=== PATIENT | male | born 1940 | race Caucasian/White ===

== ENCOUNTER → 2023-11-04 08:14 | Outpatient (REF) | payer MEDICARE, BC, SELFPAY | LOC: DHCBS MAIN 08:14 | PROVIDERS: ATTENDING PHYSICIAN Internal Medicine Cardiovascular Disease; FAMILY PHYSICIAN Internal Medicine Geriatric Medicine | DX: I51.7 Cardiomegaly (principal); I35.8 Other nonrheumatic aortic valve disorders; I35.1 Nonrheumatic aortic (valve) insufficiency | CPT/HCPCS: 93306 ==

== ENCOUNTER → 2024-01-14 09:01 | Outpatient (REF) | payer MEDICARE, BC, SELFPAY ==
[2024-01-14 09:58] LABS: Osmolality Urine 437 mOsm/kg (300-900)
[2024-01-14 10:08] LABS: Urine Sodium 66 mmol/L (30-90)
[2024-01-14 10:15] LABS: Blood Urea Nitrogen 16 mg/dl (9-20); Calcium 8.8 mg/dl (8.4-10.2); Carbon Dioxide 26 mmol/L (22-30); Chloride 97 mmol/L (98-107); Glucose 76 mg/dl (70-99); Sodium 126 mmol/L (135-145); eGFR > 60.00
[2024-01-14 11:51] LABS: Osmolality Serum 272 mOsm/kg (275-300)
== END ==
LOC: REG 09:01
PROVIDERS: ATTENDING PHYSICIAN Internal Medicine Geriatric Medicine
DX: F33.40 Major depressive disorder, recurrent, in remission, unspecified (principal); I10 Essential (primary) hypertension; I51.7 Cardiomegaly; E78.2 Mixed hyperlipidemia; K52.832 Lymphocytic colitis; R42 Dizziness and giddiness; F32.9 Major depressive disorder, single episode, unspecified; M16.11 Unilateral primary osteoarthritis, right hip; N40.1 Benign prostatic hyperplasia with lower urinary tract symptoms; K22.710 Barrett's esophagus with low grade dysplasia; G45.9 Transient cerebral ischemic attack, unspecified; I63.9 Cerebral infarction, unspecified; M79.671 Pain in right foot; E87.1 Hypo-osmolality and hyponatremia; R97.20 Elevated prostate specific antigen [PSA]
CPT/HCPCS: 36415; 80048; 83930; 83935; 84300

== ENCOUNTER → 2024-01-16 08:03 | Outpatient (REF) | payer MEDICARE, BC, SELFPAY ==
[2024-01-16 09:29] LABS: ALT (SGPT) 24 U/L (0-50); AST (SGOT) 27 U/L (17-59); Alkaline Phosphatase 70 U/L (38-126); Blood Urea Nitrogen 20 mg/dl (9-20); Calcium 9.1 mg/dl (8.4-10.2); Carbon Dioxide 25 mmol/L (22-30); Chloride 96 mmol/L (98-107); Glucose 83 mg/dl (70-99); Potassium 4.5 mmol/L (3.5-5.1); Sodium 127 mmol/L (135-145); Total Bilirubin 0.9 mg/dl (0.2-1.3); Total Protein 6.3 g/dl (6.3-8.2); eGFR > 60.00
== END ==
LOC: REG 08:03
PROVIDERS: ATTENDING PHYSICIAN Internal Medicine Geriatric Medicine
DX: E87.1 Hypo-osmolality and hyponatremia (principal)
CPT/HCPCS: 36415; 80053

== ENCOUNTER → 2024-01-19 06:52 | Outpatient (REF) | payer MEDICARE, BC, SELFPAY ==
[2024-01-19 09:05] LABS: Blood Urea Nitrogen 23 mg/dl (9-20); Calcium 8.6 mg/dl (8.4-10.2); Carbon Dioxide 25 mmol/L (22-30); Chloride 99 mmol/L (98-107); Glucose 101 mg/dl (70-99); Potassium 4.6 mmol/L (3.5-5.1); Sodium 128 mmol/L (135-145); eGFR > 60.00
== END ==
LOC: REG 06:52
PROVIDERS: ATTENDING PHYSICIAN Internal Medicine Geriatric Medicine
DX: E87.1 Hypo-osmolality and hyponatremia (principal)
CPT/HCPCS: 36415; 80048

== ENCOUNTER → 2024-02-09 08:22 | Outpatient (REF) | payer MEDICARE, BC, SELFPAY | LOC: RAD 08:22 | PROVIDERS: ATTENDING PHYSICIAN Internal Medicine Geriatric Medicine | DX: I10 Essential (primary) hypertension (principal); F33.40 Major depressive disorder, recurrent, in remission, unspecified; I51.7 Cardiomegaly; E78.2 Mixed hyperlipidemia; K52.832 Lymphocytic colitis; R42 Dizziness and giddiness; F32.9 Major depressive disorder, single episode, unspecified; M16.11 Unilateral primary osteoarthritis, right hip; N40.1 Benign prostatic hyperplasia with lower urinary tract symptoms; K22.710 Barrett's esophagus with low grade dysplasia; G45.9 Transient cerebral ischemic attack, unspecified; I63.9 Cerebral infarction, unspecified; M79.671 Pain in right foot; E87.1 Hypo-osmolality and hyponatremia; R97.20 Elevated prostate specific antigen [PSA] | CPT/HCPCS: 76872 ==

== ENCOUNTER → 2024-02-17 15:13 | Outpatient (REF) | payer MEDICARE, BC, SELFPAY | LOC: CLAB 15:13 | PROVIDERS: ATTENDING PHYSICIAN Urology | DX: R97.20 Elevated prostate specific antigen [PSA] (principal) | CPT/HCPCS: 88305; 88342; 88344 ==

== ENCOUNTER 2024-04-23 08:17 | Outpatient (RCR) | payer MEDICARE, BC, SELFPAY ==
[2024-04-23] MEDS: CORTROSYN 1 MG IV (08:58)
[2024-04-23 09:59] LABS: ACTH Stim Cortisol 0 Min 9.3 ug/dl
[2024-04-23 11:18] LABS: ACTH Stim Cortisol 30 Min 18.1 ug/dl
[2024-04-23 11:19] LABS: ACTH Stim Cortisol 60 Min 22.5 ug/dl
== END 2024-04-26 08:38 | disposition home or self-care (01) ==
LOC: OID 08:17
PROVIDERS: ATTENDING PHYSICIAN Internal Medicine Geriatric Medicine
DX: E27.40 Unspecified adrenocortical insufficiency (principal)
CPT/HCPCS: 36415; 82533; 96374

== ENCOUNTER → 2024-07-21 08:06 | Outpatient (REF) | payer MEDICARE, BC, SELFPAY | LOC: MRI 3T 08:06 | PROVIDERS: ATTENDING PHYSICIAN Radiology Radiation Oncology; FAMILY PHYSICIAN Internal Medicine Geriatric Medicine | DX: C61 Malignant neoplasm of prostate (principal) | CPT/HCPCS: 72197; A9575 ==

== ENCOUNTER → 2024-07-23 06:24 | Day surgery (SDC) | payer MEDICARE, BC, SELFPAY | LOC: GI 06:24 | PROVIDERS: ATTENDING PHYSICIAN Specialist | DX: R19.4 Change in bowel habit (principal); D12.5 Benign neoplasm of sigmoid colon; K57.30 Diverticulosis of large intestine without perforation or abscess without bleeding; N40.0 Benign prostatic hyperplasia without lower urinary tract symptoms; K64.8 Other hemorrhoids | CPT/HCPCS: 45380; 88305 ==

== ENCOUNTER → 2024-10-21 09:26 | Outpatient (REF) | payer MEDICARE, BC, SELFPAY | LOC: RAD 09:26 | PROVIDERS: ATTENDING PHYSICIAN Specialist; FAMILY PHYSICIAN Internal Medicine Geriatric Medicine | DX: R15.9 Full incontinence of feces (principal) | CPT/HCPCS: 74270 ==

== ENCOUNTER → 2024-12-02 15:25 | Outpatient (REF) | payer MEDICARE, BC, SELFPAY | LOC: RAD 15:25 | PROVIDERS: ATTENDING PHYSICIAN Family Medicine Geriatric Medicine; FAMILY PHYSICIAN Internal Medicine Geriatric Medicine | DX: M79.605 Pain in left leg (principal); M79.604 Pain in right leg | CPT/HCPCS: 93970 ==

== ENCOUNTER 2024-12-13 07:08 | Outpatient (RCR) | payer MEDICARE, BC, SELFPAY | END 2024-12-13 23:59 | disposition home or self-care (01) | LOC: RPT 07:08 | PROVIDERS: ATTENDING PHYSICIAN Family Medicine Geriatric Medicine; FAMILY PHYSICIAN Internal Medicine Geriatric Medicine | DX: R53.0 Neoplastic (malignant) related fatigue (principal); R26.2 Difficulty in walking, not elsewhere classified; M62.81 Muscle weakness (generalized); M72.2 Plantar fascial fibromatosis; C61 Malignant neoplasm of prostate; Z79.818 Long term (current) use of other agents affecting estrogen receptors and estrogen levels; Z92.3 Personal history of irradiation; Z85.46 Personal history of malignant neoplasm of prostate | CPT/HCPCS: 97110; 97163; 97164; 97530 ==

== ENCOUNTER → 2024-12-13 10:50 | Outpatient (REF) | payer MEDICARE, BC, SELFPAY | LOC: EMG 10:50 | PROVIDERS: ATTENDING PHYSICIAN Internal Medicine Geriatric Medicine | DX: R20.0 Anesthesia of skin (principal) | CPT/HCPCS: 95886; 95911 ==

== ENCOUNTER 2024-12-21 14:52 | Outpatient (RCR) | payer MEDICARE, BC, SELFPAY | END 2024-12-27 08:29 | disposition home or self-care (01) | LOC: RPT 14:52 | PROVIDERS: ATTENDING PHYSICIAN Family Medicine Geriatric Medicine; FAMILY PHYSICIAN Internal Medicine Geriatric Medicine | DX: R53.0 Neoplastic (malignant) related fatigue (principal); R26.2 Difficulty in walking, not elsewhere classified; M62.81 Muscle weakness (generalized); M72.2 Plantar fascial fibromatosis; Z73.6 Limitation of activities due to disability; Z79.818 Long term (current) use of other agents affecting estrogen receptors and estrogen levels; Z85.46 Personal history of malignant neoplasm of prostate; Z92.3 Personal history of irradiation | CPT/HCPCS: 97110 ==

== ENCOUNTER 2024-12-29 07:00 | Day surgery (SDC) | payer MEDICARE, BC, SELFPAY ==
[2024-12-27 11:58] LABS: ALT (SGPT) 25 U/L (0-50); AST (SGOT) 24 U/L (17-59); Alkaline Phosphatase 110 U/L (38-126); Blood Urea Nitrogen 39 mg/dl (9-20); Calcium 9.2 mg/dl (8.4-10.2); Carbon Dioxide 24 mmol/L (22-30); Chloride 95 mmol/L (98-107); Glucose 90 mg/dl (70-99); Potassium 4.6 mmol/L (3.5-5.1); Sodium 127 mmol/L (135-145); Total Bilirubin 0.9 mg/dl (0.2-1.3); Total Protein 6.2 g/dl (6.3-8.2); eGFR > 60.00
[2024-12-27 12:23] LABS: Hematocrit 35.5 % (39.0-52.0); Hemoglobin 12.7 g/dL (13.0-18.0); Mean Corp Hgb Conc. 35.8 g/dL (33.0-37.0); Mean Corpuscular Hgb 31.4 pg (27.0-31.0); Mean Corpuscular Volume 87.9 fL (80.0-94.0); Mean Platelet Volume 10.6 fL (7.4-10.4); Platelet Count 197 10^3/uL (130-400); Red Blood Cell Count 4.04 10^6/uL (4.70-6.10); Red Cell Dist. Width 12.2 % (11.5-14.5); White Blood Cell Count 4.4 10^3/uL (4.8-10.8)
[2024-12-27 12:54] LABS: Glycohemoglobin (HgbA1c) 5.8 % (4.0-5.6)
[2024-12-27 13:49] VITALS: BMI 27.3
--- NOTE | 2024-12-27 13:50 | CM ---
CM reviewed medical records. CM spoke with patient via phone. CM confirmed demographics. Patient lives in a two story home with a first floor set up. Patient lives independently. Patient denies a history of VN or SNF. Patient is active with his PCP.
Patient uses [facility] for medication services.
Patient does lives alone. Patient stated that he will not have anyone to stay with him post -operatively. Patient stated that his son would be available to provide transportation home, but would not be available to stay with him. CM advised patient
to discuss post operative plans with son. CM further explained that PT will work with patient to make further recommendations.
CM will remain available as needed.
[2024-12-27 14:48] VITALS: BMI 27.3
[2024-12-29 07:10] VITALS: BMI 27.3
[2024-12-29 07:11] VITALS: BP 127/63
[2024-12-29] MEDS: TYLENOL 650 MG PO (07:32)
[2024-12-29] MEDS: NORMOSOL-R/PLASMALYTE-A 1000 IV (07:32)
[2024-12-29] MEDS: CELEBREX 200 MG PO (07:32)
[2024-12-29 07:39] LABS: Blood Urea Nitrogen 19 mg/dl (9-20); Calcium 9.1 mg/dl (8.4-10.2); Carbon Dioxide 22 mmol/L (22-30); Chloride 98 mmol/L (98-107); Estimated Creatinine Clearance 87 ml/min; Glucose 98 mg/dl (70-99); Potassium 4.3 mmol/L (3.5-5.1); Sodium 126 mmol/L (135-145); eGFR > 60.00
--- NOTE | 2024-12-29 08:18 | W.PN.UPDATE ---
Update Note
Progress Note Update
R HANNA 12/29/24
DVT ppx Eliquis 2.5mg bid
Pain control-Ultram
PAF
NSVT
-tele+BB+ Eliquis
Chronic hyponatremia-fluid restrict,Na+ Cl-tabs, NSS IVF-CMP in am
--- NOTE | 2024-12-29 08:27 | W.DS.TRANS ---
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
-
Discharge Instructions:
Discharge Diagnosis/Procedures R HANNA 12/29/24
Diet Restrict fluids to 48 oz
Activity With Walker
Driving Restrictions No driving
Bathing Restrictions OK to Shower
Other Services PT
Instructions:
Stand-Alone Forms: Total Hip/Knee Replacement D/C
Changes to Home Medications: Yes
Discharge Medications:
DC Medications w/original date entered in [employer]
atorvastatin 20 mg tablet 20 mg PO DAILY 10/07/22
famotidine 40 mg tablet 40 mg PO PRN PRN sour stomach 10/07/22
pantoprazole 40 mg tablet,delayed release 40 mg PO BID 10/07/22
silodosin 8 mg capsule 8 mg PO DAILY 10/07/22
tranylcypromine 10 mg tablet (Parnate) 50 mg PO DAILY anxiety 10/07/22
calcium carbonate 200 mg PO PRN PRN Indigestion 08/13/23
carvedilol 3.125 mg tablet 3.125 mg PO BID 08/13/23
lisinopril 20 mg tablet 20 mg PO BID 08/13/23
metoclopramide HCl 5 mg tablet (Reglan) 5 mg PO TIDPRN PRN Indigestion 04/23/24
Lupron Depot (3 month) 1 dose Q3M 12/24/24
calcium carbonate (Calcium 600) 600 mg PO DAILY 12/24/24
cholecalciferol (vitamin D3) 125 mcg (5,000 unit) tablet (Vitamin D3) 125 mcg PO DAILY 12/24/24
cyanocobalamin (vitamin B-12) 1,000 mcg tablet (Vitamin B-12) 1,000 mcg PO DAILY 12/24/24
furosemide 20 mg tablet (Lasix) 20 mg PO DAILY 12/24/24
lycopene 10 mg capsule 20 mg PO DAILY 12/24/24
mupirocin 2 % topical ointment 1 applic topical BID infection prevention #1 tube 12/24/24
prednisolone acetate (PF) 1 % eye drops,suspension 1 drp BOTH EYES PRN PRN Mucous Buildup 12/24/24
vitamin K2 100 mcg capsule 100 mcg PO DAILY 12/24/24
zolpidem 12.5 mg tablet,extended release,multiphase (Ambien CR) 12.5 mg PO HSPRN PRN Insomnia 12/24/24
dexamethasone 4 mg tablet 4 mg PO BID inflammation #6 tabs 12/27/24
gabapentin 300 mg capsule 300 mg PO HS sleep/pain #10 caps 12/27/24
ondansetron 4 mg disintegrating tablet 4 mg PO Q6H PRN n/v #20 tabs 12/27/24
sodium chloride 0.2 % 500 mg PO BID 12/27/24
tramadol 50 mg tablet 50 mg PO Q6H PRN 1 tab moderate pain, 2 if severe #30 tabs 12/27/24
apixaban 5 mg tablet (Eliquis) 2.5 mg (1/2 x 5 mg) PO BID Blood clot prevention/tx/afib #0 tabs 12/29/24
Home Medication Changes
mupirocin 2 % topical ointment 1 applic topical BID infection prevention #1 tube 12/24/24
prednisolone acetate (PF) 1 % eye drops,suspension 1 drp BOTH EYES PRN PRN Mucous Buildup 12/24/24
vitamin K2 100 mcg capsule 100 mcg PO DAILY 12/24/24
zolpidem 12.5 mg tablet,extended release,multiphase (Ambien CR) 12.5 mg PO HSPRN PRN Insomnia 12/24/24
dexamethasone 4 mg tablet 4 mg PO BID inflammation #6 tabs 12/27/24
gabapentin 300 mg capsule 300 mg PO HS sleep/pain #10 caps 12/27/24
ondansetron 4 mg disintegrating tablet 4 mg PO Q6H PRN n/v #20 tabs 12/27/24
sodium chloride 0.2 % 500 mg PO BID 12/27/24
tramadol 50 mg tablet 50 mg PO Q6H PRN 1 tab moderate pain, 2 if severe #30 tabs 12/27/24
apixaban 5 mg tablet (Eliquis) 2.5 mg (1/2 x 5 mg) PO BID Blood clot prevention/tx/afib #0 tabs 12/29/24
Pending Results: No
== END 2024-12-29 08:35 | disposition home or self-care (01) ==
LOC: SDS 07:00
PROVIDERS: Anesthesiology; ATTENDING PHYSICIAN Orthopaedic Surgery; FAMILY PHYSICIAN Internal Medicine Geriatric Medicine; REFERRING PHYSICIAN Internal Medicine Cardiovascular Disease
DX: M16.11 Unilateral primary osteoarthritis, right hip (principal); Z53.9 Procedure and treatment not carried out, unspecified reason
CPT/HCPCS: 27130; C1713; 36415; 80048; 80053; 83036; 85027; 87070

== ENCOUNTER 2025-01-19 07:44 | Inpatient (IN) | payer MEDICARE, BC, SELFPAY ==
--- NOTE | 2025-01-11 14:20 | CM ---
Addendum entered by Haleigh Owens RN 01/13/25 11:03:
CM spoke with patient via phone and discuss discharge planning options. CM reinforced that patient is expected to be discharged home after surgery, and PT will assess for needs. Patient understood. CM further provided the phone numbers for [facility]
PT in [place] and also [facility].
CM offered to call patient's on to confirm that son would be available for support post operatively. Patient declined. Patient stated that his son will pick him up from surgery and provide supervision.
CM will remain available as needed.
Original Note:
CM spoke with patient as his surgery was rescheduled for 01/19. Patient stated that he would not have anyone to stay with him post -operatively. CM advised that PT will work with him to establish safe discharge plan. CM will remain available as
needed.
PLAN: Pending PT/OT evaluations.
[2025-01-13 12:54] LABS: Blood Urea Nitrogen 35 mg/dl (9-20); Calcium 8.9 mg/dl (8.4-10.2); Carbon Dioxide 26 mmol/L (22-30); Chloride 100 mmol/L (98-107); Glucose 94 mg/dl (70-99); Potassium 4.8 mmol/L (3.5-5.1); Sodium 134 mmol/L (135-145); eGFR > 60.00
[2025-01-13 14:03] VITALS: BMI 28.0
[2025-01-13 14:54] VITALS: BMI 28.0
--- NOTE | 2025-01-17 09:07 | CM ---
CM received call from patient stating that he is having a difficult time making an outpatient PT appointment. CM referred to Mona Felder for assistance.
[2025-01-19] VITALS (19 sets, daily range): BP systolic 106–136; BP diastolic 65–90; PULSE 101; O2SAT 96–97; BMI 28.0
[2025-01-19] MEDS: TYLENOL 650 MG PO ×4 (08:36→20:10)
[2025-01-19] MEDS: CELEBREX 200 MG PO (08:36)
[2025-01-19] MEDS: BACTROBAN NASAL 1 GRAM NASAL (08:37)
[2025-01-19] MEDS: NORMOSOL-R/PLASMALYTE-A 1000 IV (09:18)
--- NOTE | 2025-01-19 11:17 | W.PN.UPDATE ---
Update Note
Progress Note Update
R HANNA Dr. Walker 01/19/25
DVT ppx-Eliquis 2.5mg bid
-OP PT
Paroxysmal atrial fibrillation
Nonsustained ventricular tachycardia.
-tele-continue BB uninterrupted-resume Eliquis 5mgbid POD#3 provided hemodynamically stable
Hyponatremia. Patient is currently on fluid restriction with
sodium chloride tablets added to home medications per Dr. Kim,
and we will include normal saline in lieu of Normosol
postoperatively. Continue fluid restriction. Check CMP
postoperative day one and resume home sodium tablets.
Hauser's esophagus/GERD-PPI
Vertigo-fall precautions
--- NOTE | 2025-01-19 11:58 | W.DS.TRANS ---
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
-
Discharge Instructions:
Discharge Diagnosis/Procedures R HANNA 01/19/25
Diet As tolerated
Additional Activity minimize Tramadol and wear TEDs stockings to
prevent low blood pressure/dizziness
Driving Restrictions No driving
Bathing Restrictions OK to Shower
Other Services PT
Instructions:
Stand-Alone Forms: Total Hip/Knee Replacement D/C
Changes to Home Medications: Yes
Discharge Medications:
DC Medications w/original date entered in [employer]
atorvastatin 20 mg tablet 20 mg PO DAILY 10/07/22
famotidine 40 mg tablet 40 mg PO PRN PRN sour stomach 10/07/22
pantoprazole 40 mg tablet,delayed release 40 mg PO BID 10/07/22
silodosin 8 mg capsule 8 mg PO DAILY 10/07/22
tranylcypromine 10 mg tablet (Parnate) 50 mg PO DAILY anxiety 10/07/22
calcium carbonate 200 mg PO PRN PRN Indigestion 08/13/23
carvedilol 3.125 mg tablet 3.125 mg PO BID 08/13/23
metoclopramide HCl 5 mg tablet (Reglan) 5 mg PO TIDPRN PRN Indigestion 04/23/24
Lupron Depot (3 month) 1 dose Q3M 12/24/24
calcium carbonate (Calcium 600) 600 mg PO DAILY 12/24/24
cholecalciferol (vitamin D3) 125 mcg (5,000 unit) tablet (Vitamin D3) 125 mcg PO DAILY 12/24/24
cyanocobalamin (vitamin B-12) 1,000 mcg tablet (Vitamin B-12) 1,000 mcg PO DAILY 12/24/24
furosemide 20 mg tablet (Lasix) 20 mg PO DAILY 12/24/24
lycopene 10 mg capsule 20 mg PO DAILY 12/24/24
mupirocin 2 % topical ointment 1 applic topical BID infection prevention #1 tube 12/24/24
prednisolone acetate (PF) 1 % eye drops,suspension 1 drp BOTH EYES PRN PRN Mucous Buildup 12/24/24
zolpidem 12.5 mg tablet,extended release,multiphase (Ambien CR) 12.5 mg PO HSPRN PRN Insomnia 12/24/24
dexamethasone 4 mg tablet 4 mg PO BID inflammation #6 tabs 12/27/24
gabapentin 300 mg capsule 300 mg PO HS sleep/pain #10 caps 12/27/24
ondansetron 4 mg disintegrating tablet 4 mg PO Q6H PRN n/v #20 tabs 12/27/24
tramadol 50 mg tablet 50 mg PO Q6H PRN 1 tab moderate pain, 2 if severe #30 tabs 12/27/24
polyethylene glycol 3350 17 gram oral powder packet (Miralax) 17 g PO DAILY 01/12/25
simethicone 80 mg chewable tablet 80 mg PO PRN PRN gas 01/12/25
simethicone 80 mg chewable tablet 80 mg PO QPM 01/12/25
sodium chloride 1,000 mg soluble tablet 500 mg PO BID 01/12/25
acetaminophen 325 mg tablet (Tylenol) 650 mg (2 x 325 mg) PO QID #1 tab 01/19/25
apixaban 5 mg tablet (Eliquis) 2.5 mg (1/2 x 5 mg) PO BID Blood clot prevention/tx/afib #0 tabs 01/19/25
docusate sodium 100 mg capsule (Colace) 100 mg PO BID stool softner #1 cap 01/19/25
lisinopril 20 mg tablet 20 mg PO BID #0 tabs 01/19/25
magnesium hydroxide 400 mg/5 mL oral suspension (Milk of Magnesia) 30 ml PO HS PRN constipation #1 mL 01/19/25
sennosides 8.6 mg tablet (Senokot) 17.2 mg (2 x 8.6 mg) PO BID laxative #2 tabs 01/19/25
Home Medication Changes
dexamethasone 4 mg tablet 4 mg PO BID inflammation #6 tabs 12/27/24
gabapentin 300 mg capsule 300 mg PO HS sleep/pain #10 caps 12/27/24
ondansetron 4 mg disintegrating tablet 4 mg PO Q6H PRN n/v #20 tabs 12/27/24
tramadol 50 mg tablet 50 mg PO Q6H PRN 1 tab moderate pain, 2 if severe #30 tabs 12/27/24
polyethylene glycol 3350 17 gram oral powder packet (Miralax) 17 g PO DAILY 01/12/25
acetaminophen 325 mg tablet (Tylenol) 650 mg (2 x 325 mg) PO QID #1 tab 01/19/25
apixaban 5 mg tablet (Eliquis) 2.5 mg (1/2 x 5 mg) PO BID Blood clot prevention/tx/afib #0 tabs 01/19/25
docusate sodium 100 mg capsule (Colace) 100 mg PO BID stool softner #1 cap 01/19/25
magnesium hydroxide 400 mg/5 mL oral suspension (Milk of Magnesia) 30 ml PO HS PRN constipation #1 mL 01/19/25
sennosides 8.6 mg tablet (Senokot) 17.2 mg (2 x 8.6 mg) PO BID laxative #2 tabs 01/19/25
Pending Results: No
[2025-01-19] MEDS: ULTRAM 50 MG PO ×2 (13:07→20:11)
[2025-01-19] MEDS: FLOMAX 0.4 MG PO (13:07)
[2025-01-19] MEDS: DILAUDID 0.25 MG IV ×2 (13:38→15:17)
[2025-01-19] MEDS: NSS 1000 IV (13:42)
--- NOTE | 2025-01-19 16:15 | PTCARENOTE ---
Telephone report received from PHOTOLITHOGRAPHIC STRIPPER Marianne; patient arrived in bed with IVF infusing, primaseal on (R) hip with minimal old drainage; VSS.
[2025-01-19] MEDS: ANCEF 5 IV (16:44)
[2025-01-19] MEDS: COLACE 100 MG PO (20:10)
[2025-01-19] MEDS: SODIUM CHLORIDE 1 GRAM PO (20:10)
[2025-01-19] MEDS: SENOKOT 17.2 MG PO (20:10)
[2025-01-19] MEDS: ELIQUIS 2.5 MG PO (20:10)
[2025-01-19] MEDS: PROTONIX 40 MG PO (20:10)
[2025-01-19] MEDS: DECADRON 4 MG IV (20:11)
[2025-01-19] MEDS: COREG 3.125 MG PO (20:11)
[2025-01-19] MEDS: PEPCID PO (21:53)
[2025-01-19] MEDS: AMBIEN 10 MG PO (21:57)
[2025-01-19] MEDS: NEURONTIN 300 MG PO (21:57)
[2025-01-19] MEDS: BACTROBAN 2% OINTMENT 1 APPLIC NASAL (21:57)
[2025-01-19] MEDS: ZOFRAN 4 MG IV (22:10)
[2025-01-19] MEDS: DILAUDID 0.5 MG IV (22:16)
[2025-01-20] VITALS (7 sets, daily range): BP systolic 91–137; BP diastolic 50–75; PULSE 87–100; O2SAT 97
[2025-01-20] MEDS: ANCEF 5 IV (00:09)
[2025-01-20] MEDS: TYLENOL 650 MG PO ×6 (00:09→19:49)
[2025-01-20] MEDS: TORADOL 15 MG IV (00:09)
[2025-01-20] MEDS: ATIVAN 0.5 MG IV (01:21)
[2025-01-20] MEDS: NSS (PRESERVATIVE FREE) 0.25 ML IV (01:22)
[2025-01-20] MEDS: ULTRAM 50 MG PO ×3 (02:08→22:02)
--- NOTE | 2025-01-20 03:37 | PTCARENOTE ---
Pt. having significant R hip surgical site pain throughout shift. Prescribed Tramadol 50mg PO and Dilaudid 0.5mg IV given - see MAR for admin times - without success and pt. c/o progressively worsening pain. Pt. described pain as a constant
throbbing/aching in his R hip and into R knee area ranging from 7 to 8/10. Decent ROM in RLE, pedal pulses +2, strong dorsiflexion and plantar flexion, small drainage on primaseal unchanged from initial assessment, +1 swelling to R hip without
hematoma, elevation utilized, and ice applied intermittently. Left TT message for ortho on-call doctor. House DIRECTOR DATA suggested Toradol IV, but medication did not provide pt. with adequate pain relief. IV Ativan tried with successful results. Pt. had
significant relief in pain down to 5/10 and able to get in a comfortable position. As of 0300 vital signs, pt. reports 3/10 R hip pain and able to get a bit of sleep.
[2025-01-20] MEDS: LASIX 20 MG PO (08:11)
[2025-01-20] MEDS: ELIQUIS 2.5 MG PO ×2 (08:12→19:46)
[2025-01-20] MEDS: COREG 3.125 MG PO ×2 (08:12→19:47)
[2025-01-20] MEDS: ProAmatine 5 MG PO (08:12)
[2025-01-20] MEDS: PROTONIX 40 MG PO ×2 (08:12→19:46)
[2025-01-20] MEDS: SODIUM CHLORIDE 1 GRAM PO ×2 (08:13→19:47)
[2025-01-20] MEDS: DECADRON 4 MG IV (08:13)
[2025-01-20] MEDS: SENOKOT 17.2 MG PO ×2 (08:13→19:46)
[2025-01-20] MEDS: COLACE 100 MG PO ×2 (08:13→19:45)
[2025-01-20] MEDS: LIPITOR 20 MG PO (08:13)
[2025-01-20] MEDS: BACTROBAN 2% OINTMENT 1 APPLIC NASAL ×2 (08:14→19:50)
[2025-01-20] MEDS: FLUSH (NSS) 2 FLUSH IV (08:22)
--- NOTE | 2025-01-20 08:48 | CM ---
Addendum entered by Haleigh Owens RN 01/20/25 13:19:
Cm attempted to call patient's son. Voicemail was full.
Addendum entered by Haleigh Owens RN 01/20/25 11:03:
CM was updated by PA. Plan to keep patient for further medical observation.
CM left message for patient's son to confirm that he is unable to stay with patient on discharge.
Addendum entered by Haleigh Owens RN 01/20/25 10:48:
CM confirmed that patient is not eligible for waiver program via [facility].
Addendum entered by Haleigh Owens RN 01/20/25 09:29:
CM has been accepted to [facility].
Original Note:
CM reviewed PT notes and SNF was recommended. CM spoke with patient and he was surprised that SNF was recommended. He would be agree to SNF if PT continued to recommend it. Chaz sent preliminary referrals to [facility] and
[facility].
PLAN: SNF if patient is agreeable.
[2025-01-20 09:32] LABS: Blood Urea Nitrogen 23 mg/dl (9-20); Calcium 8.8 mg/dl (8.4-10.2); Carbon Dioxide 23 mmol/L (22-30); Chloride 101 mmol/L (98-107); Estimated Creatinine Clearance 77 ml/min; Glucose 129 mg/dl (70-99); Potassium 4.3 mmol/L (3.5-5.1); Sodium 131 mmol/L (135-145); eGFR > 60.00
--- NOTE | 2025-01-20 12:31 | W.PN.ORTHO ---
Today's Communication / Plan
-
d/c when stable
Assessment
.
Distal Motor Intact: Yes
Dressing:
Clean, dry and intact.
Assessment:
Paroxysmal atrial fibrillation
Nonsustained ventricular tachycardia.
-tele-continue BB uninterrupted-resume Eliquis 5mgbid POD#3 provided hemodynamically stable
Hyponatremia. Patient is currently on fluid restriction with
sodium chloride tablets added to home medications per Dr. Kim,
and we will include normal saline in lieu of Normosol
postoperatively. Continue fluid restriction.
BMP stable--IVF NSS @80ml/hr to address sodium and hypotension
Dizzy-IVF + Midodrine-check Orthostatics
Hauser's esophagus/GERD-PPI
Vertigo-fall precautions
Plan
.
Surgery / Date: R HANNA Dr. Walker 01/19/25
DVT Prophylaxis: Other (Eliquis)
Activity:
Out of bed.
PT/OT
Discharge Plan: Other (home 14/04 assist vs SNF-vocational case manager to speak with son)
Subjective
.
.:
Patient resting comfortably.
Vital Signs and Labs
.
Vital Signs and Labs:
Lab Results
01/20/25 07:48
Temp Pulse Resp BP Pulse Ox
98.1 F 93 17 111/62 97
01/20/25 11:04 01/20/25 11:04 01/20/25 11:04 01/20/25 11:04 01/20/25 11:04
Non-invasive Hgb result: 11.4
Physical Exam
-
HEENT: No pallor, cyanosis, or jaundice. Throat clear.
NECK: Supple. No JVD.
RESPIRATORY: Lungs clear to auscultation.
CVS: S1, S2 normal. RRR.� No murmur, rub or gallop.
ABDOMEN: Soft, non-tender. No distension. BS+/normal.
EXTREMITIES: strength equal, no calf pain with palpation
LEVERS LACE MACHINE OPERATOR: AOx3. No focal deficits. transmission calibration engineer grossly intact
[2025-01-20] MEDS: NSS 500 IV (16:01)
[2025-01-20] MEDS: ZOFRAN 4 MG IV (19:50)
[2025-01-20] MEDS: NEURONTIN 300 MG PO (21:49)
[2025-01-20] MEDS: AMBIEN 10 MG PO (21:49)
[2025-01-20] MEDS: PEPCID 40 MG PO (21:49)
[2025-01-21] MEDS: TYLENOL PO (00:28)
[2025-01-21 03:00] VITALS: BP 131/76
[2025-01-21] MEDS: TYLENOL 650 MG PO ×3 (03:58→13:43)
[2025-01-21] MEDS: ULTRAM 50 MG PO ×2 (06:56→15:43)
[2025-01-21 07:03] VITALS: BP 136/90
--- NOTE | 2025-01-21 09:54 | CM ---
Addendum entered by Haleigh Owens RN 01/21/25 12:27:
CM confirmed that patient's son will be with him 24 hours/day over the weekend and is agreeable to [facility]. CM updated [facility] clinical rn liaison with new referral.
PLAN: Home with son and [facility].
Addendum entered by Haleigh Owens RN 01/21/25 10:19:
Cm spoke with patient's son Kenton who stated that he would be available for supervision, but not 24 hours. Patient's son stated that he has additional support with neighbors and friends. CM will pending further discharge planning based on PT
evaluation.
Original Note:
Cm spoke with patient. Patient stated that he would prefer home discharge. Patient stated that his son and neighbors would be available for assistance. CM will await PT evaluation for further planning.
[2025-01-21] MEDS: COLACE 100 MG PO (10:18)
[2025-01-21] MEDS: LASIX 20 MG PO (10:19)
[2025-01-21] MEDS: ProAmatine PO (10:19)
[2025-01-21] MEDS: SENOKOT 17.2 MG PO (10:20)
[2025-01-21] MEDS: LIPITOR 20 MG PO (10:20)
[2025-01-21] MEDS: COREG 3.125 MG PO (10:20)
[2025-01-21] MEDS: SODIUM CHLORIDE 1 GRAM PO (10:20)
[2025-01-21] MEDS: ELIQUIS 2.5 MG PO (10:20)
[2025-01-21] MEDS: PROTONIX 40 MG PO (10:21)
[2025-01-21 10:46] LABS: Sodium 135 mmol/L (135-145)
[2025-01-21 11:02] VITALS: BP 139/78
[2025-01-21 11:29] VITALS: BP 143/80; PULSE 80; O2SAT 97
[2025-01-21 11:57] VITALS: BP 128/78
--- NOTE | 2025-01-21 12:34 | W.PN.ORTHO ---
Today's Communication / Plan
-
-discussion occurred with son and navigator re patient safety at home--son agrees to stay with him and provided supervision/assist -home care will be arranged-patient refuses SNF but is functionally much improved from POD#1
Assessment
.
Distal Motor Intact: Yes
Dressing:
Clean, dry and intact.
Assessment:
Paroxysmal atrial fibrillation
Nonsustained ventricular tachycardia.
-stable on tele-continue BB uninterrupted-resume Eliquis 5mgbid POD#3 provided hemodynamically stable
Hyponatremia. Patient is currently on fluid restriction with
sodium chloride tablets added to home medications per Dr. Kim,
and we have utilized normal saline in lieu of Normosol postoperatively.
Continue fluid restriction.
BMP stable--IVF NSS @80ml/hr to address sodium and hypotension on POD #1--Na+ improved POD#2 135
Dizzy POD#1--IVF + Midodrine-Orthostatics now stable
Hauser's esophagus/GERD-PPI
Vertigo-fall precautions
Plan
.
Surgery / Date: R HANNA Walker 01/19/25
DVT Prophylaxis: Other (Eliquis)
Activity:
Out of bed.
PT/OT
Discharge Plan: Home w/ VN
Subjective
.
.:
Patient resting comfortably.
Vital Signs and Labs
.
Vital Signs and Labs:
Lab Results
01/21/25 08:14
Temp Pulse Resp BP Pulse Ox
97.7 F 91 16 139/78 96
01/21/25 11:02 01/21/25 11:02 01/21/25 11:02 01/21/25 11:02 01/21/25 11:02
Non-invasive Hgb result: 15.4
Physical Exam
-
HEENT: No pallor, cyanosis, or jaundice. Throat clear.
NECK: Supple. No JVD.
RESPIRATORY: Lungs clear to auscultation.
CVS: S1, S2 normal. RRR.� No murmur, rub or gallop.
ABDOMEN: Soft, non-tender. No distension. BS+/normal.
EXTREMITIES: strength equal, no calf pain with palpation
CEMENT SIDE LASTER: AOx3. No focal deficits. printer floor covering assistant grossly intact
--- NOTE | 2025-01-21 13:17 | VNURNOTE ---
Home Health Liaison met with patient at bedside to discuss [facility] nurse/therapy, visits, schedule and homebound status. Patient is agreeable and understands that visits at home will be 2-3 x per week to assess and teach medical management. This
author reinforced to patient importance of having someone to assist him at home upon DC. Confirmed that his son Kenton will help him. Called son Kenton to explain [facility] services, no answer, left message. Patient is aware that [facility] will contact
them for start of care in 1-2 days after discharge from .
[facility] referral completed in [facility].
[2025-01-21] MEDS: DULCOLAX 10 MG RECTAL (13:43)
[2025-01-21] MEDS: MILK OF MAGNESIA 30 ML PO (13:53)
[2025-01-21 15:05] VITALS: BP 128/72; BP 136/79; BP 139/74; PULSE 101; PULSE 91; PULSE 94
== END 2025-01-21 16:47 | disposition home health service (06) | DRG 470 ==
LOC: 2 SOUTH 07:44
PROVIDERS: Physician Assistant Medical; ADMITTING PHYSICIAN Orthopaedic Surgery; FAMILY PHYSICIAN Internal Medicine Geriatric Medicine
PROC: 0SR90JA Replacement of Right Hip Joint with Synthetic Substitute, Uncemented, Open Approach (ICD-10-PCS; 2025-01-19)
DX: M16.11 Unilateral primary osteoarthritis, right hip (principal); I47.20 Ventricular tachycardia, unspecified; E87.1 Hypo-osmolality and hyponatremia; I48.0 Paroxysmal atrial fibrillation; I10 Essential (primary) hypertension; E78.5 Hyperlipidemia, unspecified; K21.9 Gastro-esophageal reflux disease without esophagitis; K22.70 Barrett's esophagus without dysplasia; Z86.73 Personal history of transient ischemic attack (TIA), and cerebral infarction without residual deficits; G47.00 Insomnia, unspecified; Z79.01 Long term (current) use of anticoagulants; Z88.5 Allergy status to narcotic agent; Z92.3 Personal history of irradiation; Z85.46 Personal history of malignant neoplasm of prostate
CPT/HCPCS: 36415; 73502; 80048; 84295; 97110; 97116; 97163; 97167; 97530; 97535; C1776

== ENCOUNTER 2025-01-30 00:39 | Inpatient (IN) | payer MEDICARE, BC, SELFPAY ==
[2025-01-29 21:44] LABS: % Basophils 0.3 % (0-2); % Eosinophils 1.4 % (0-6); % Immature Granulocytes 4.2 % (0-0.5); % Lymphocytes 8.9 % (20.5-51.1); % Monocytes 12.2 % (1.7-9.3); Absolute Eosinophils 0.1 10^3/uL (0-0.7); Absolute Immature Granulocytes 0.3 10^3/uL (0-0.05); Absolute Lymphocytes 0.6 10^3/uL (1.2-3.4); Absolute Monocytes 0.9 10^3/uL (0.1-0.6); Absolute Neutrophils 5.3 10^3/uL (1.4-6.5); Hematocrit 35.3 % (39.0-52.0); Hemoglobin 12.6 g/dL (13.0-18.0); Mean Corp Hgb Conc. 35.7 g/dL (33.0-37.0); Mean Corpuscular Hgb 30.4 pg (27.0-31.0); Mean Corpuscular Volume 85.1 fL (80.0-94.0); Mean Platelet Volume 10.1 fL (7.4-10.4); Nucleated Red Blood Cells % 0 % (-); Platelet Count 188 10^3/uL (130-400); Red Blood Cell Count 4.15 10^6/uL (4.70-6.10); Red Cell Dist. Width 13.4 % (11.5-14.5); White Blood Cell Count 7.2 10^3/uL (4.8-10.8)
[2025-01-29 21:52] VITALS: BMI 26.9
[2025-01-29 21:57] LABS: Glucose - Point of Care 133 mg/dl (70-99)
[2025-01-29] MEDS: ZOFRAN 4 MG IV (21:59)
[2025-01-29 22:00] VITALS: BP 128/74
[2025-01-29 22:00] LABS: APTT 32.6 Sec (23.4-35.0); INR 1.24; PT 15.9 Sec (11.4-14.6)
[2025-01-29 22:05] LABS: ALT (SGPT) 16 U/L (0-50); AST (SGOT) 17 U/L (17-59); Albumin 3.3 g/dl (3.5-5.0); Alkaline Phosphatase 114 U/L (38-126); Blood Urea Nitrogen 31 mg/dl (9-20); Calcium 8.4 mg/dl (8.4-10.2); Carbon Dioxide 19 mmol/L (22-30); Chloride 97 mmol/L (98-107); Estimated Creatinine Clearance 85 ml/min; Glucose 114 mg/dl (70-99); Sodium 125 mmol/L (135-145); Total Protein 5.6 g/dl (6.3-8.2); eGFR > 60.00
[2025-01-29 22:07] LABS: Troponin I < 0.012 ng/ml
--- NOTE | 2025-01-29 22:24 | ED.CVA ---
History of Present Illness
General
Chief Complaint: CVA/TIA Symptoms
Time Seen by Provider: 01/29/25 21:44
Onset of Stroke Symptoms
Onset of symptoms known: Yes
Date of onset of symptoms: 01/29/25
Time of onset of symptoms: 17:00
History of Present Illness
History of Present Illness:
85-year-old male with history of A-fib on Eliquis, hypertension, and hyperlipidemia presents to the emergency department via EMS as a prehospital stroke alert due to altered mental status. Per EMS report the patient had spoken with his son via
telephone at approximate 5 PM and seemed normal, at approximately 9:20 PM the patient called his son stating he needed help and asked for his son to call 911. On arrival of EMS the patient was altered and began vomiting. EMS reports no focal
deficits however exam was challenging. Prior history of TIA with subsequent loop recorder placement that led to the diagnosis of A-fib. On arrival the patient is awake, follows commands intermittently, unable to answer orientation questions.
Past History
Past History
ED Past Medical History: CVA, GERD, HTN and Hypercholesterolemia
ED Past Surgical History: Orthopedic and Tonsilectomy
Social History
Tobacco: Non-smoker
Alcohol: Occasional
Drug: None
Personal: Single
Living: alone
Review of Systems
Review of Systems
Allergies reviewed?: Yes
All Other Systems: ROS reviewed and negative except as documented in HPI and ROS
Phy Exam
Physical Exam
Physical Exam:
GEN: Awake, ill-appearing, actively vomiting
HEENT: Oral mucosa moist, no scleral icterus
Cardiac: Regular rate
Lung: No respiratory distress, no tachypnea
MSK: No gross deformity or injuries
Skin: Good color, no pallor or jaundice, no rashes
Neuro: Alert, oriented to self only, follows commands occasionally, moves all extremities freely without limitation
Psych: Calm, cooperative
Course
Orders/Labs/Results
Orders:
Orders
05/10/25 21:35
Electrocardiogram (*1) Urgent
Reason for Study: Other
Other Reason for Exam: Possible Stroke
CT HEAD STROKE ALERT W/o Cont Urgent
Comment:
Reason For Exam: weakness
Bedside Glucose- Treatment ONCE
Cardiac Monitoring- Treatment ONCE
EKG- Treatment ONCE
IV Insert/Care/Rem.- Treatment PRN
Vital Signs As Directed
Frequency: Other
Weight As Directed
Frequency: Once
Comment: ZERO STRETCHER SCALE FOR ACCURATE WEIGHT
01/29/25 21:39
CT HEAD/NECK ANG STROKE ALERT Urgent
Comment:
Reason For Exam: weakness
Complete Blood Count/With Diff Urgent
Comprehensive Metabolic Panel Urgent
PTT Urgent
Prothrombin Time Urgent
Serum Osmolality Urgent
Troponin I Urgent
01/29/25 21:50
Ondansetron Injectable [Zofran] 4 mg .ROUTE .STK-MED ONE
01/29/25 21:58
Ondansetron Injectable [Zofran] 4 mg IV NOW STA
01/29/25 22:15
Add On- LAB Urgent
Tests Added?: serum osmolality
Osmolality, Random Urine Urgent
Urinalysis Reflex To Culture Urgent
Urine Sodium Urgent
01/29/25 22:22
0.9% Sodium Chloride 500 ml [Nss] 500 ml IV BOLUS
Abnormal Lab Results
01/29/25 01/29/25
21:39 21:56
RBC 4.15 L 10^6/uL
(4.70-6.10)
Hgb 12.6 L g/dL
(13.0-18.0)
Hct 35.3 L %
(39.0-52.0)
Abs Immat Gran (auto) 0.3 H 10^3/uL
(0-0.05)
Absolute Lymphs (auto) 0.6 L 10^3/uL
(1.2-3.4)
Absolute Monos (auto) 0.9 H 10^3/uL
(0.1-0.6)
Immature Gran % 4.2 H %
(0-0.5)
Lymphocytes % 8.9 L %
(20.5-51.1)
Monocytes % 12.2 H %
(1.7-9.3)
PT 15.9 H Sec
(11.4-14.6)
Sodium 125 L mmol/L
(135-145)
Chloride 97 L mmol/L
(98-107)
Carbon Dioxide 19 L mmol/L
(22-30)
BUN 31 H mg/dl
(9-20)
Glucose 114 H mg/dl
(70-99)
Serum Osmolality 265 L mOsm/kg
(275-300)
Total Protein 5.6 L g/dl
(6.3-8.2)
Albumin 3.3 L g/dl
(3.5-5.0)
POC Glucose 133 H mg/dl
(70-99)
01/29/25 21:39
01/29/25 21:39
Vital Signs
Initial and Last Documented VS:
Initial Vital Signs
Pulse Resp
81 20
01/29/25 21:54 01/29/25 21:54
Last Documented Vital Signs
Pulse Resp BP Pulse Ox
90 20 128/74 100
01/29/25 22:00 01/29/25 22:00 01/29/25 22:00 01/29/25 22:00
MDM/Problems Addressed
MDM/Problems Addressed:
Unclear etiology, ultimately not strongly indicative of acute cerebrovascular accident given mental status change without clear focal deficits. Nevertheless he is not a TNK candidate on the basis of Eliquis use. He has noted to be hyponatremic,
acutely in the past 8 days, this certainly could be the etiology to his sudden mental status change but he seems profoundly altered for a sodium of 125. CT angiogram does note severe focal narrowing of the right P2 and P3 segment of the MANAGER PLANNING,
certainly with vomiting and confusion a posterior cerebellar syndrome is considered however he has no nystagmus or obvious vision changes that would suggest a brainstem stroke at this point. Gentle IV crystalloid infusion was given. Will admit to
the hospitalist service for further management
*Critical Care Note
Total Time (30-74mins, 75-104mins- exclusive of procedures): Not Applicable
ED Attending Note
-
Portions of this chart may have been created with voice recognition software.� Occasional wrong word or��sound alike� substitutions may have occurred due to the inherent limitations of voice recognition software.
Discharge Plan
Departure
Patient Disposition: Admit
Date of Disposition: 01/29/25
Time of Disposition: 22:57
Admit to: Med/Surg
Presentation/result/management discussed w/ accepting MD/DO: Hospitalist
Discharge Problem:
Toxic metabolic encephalopathy, Acute hyponatremia
Prescriptions:
No Action
atorvastatin 20 mg Tablet
20 mg PO DAILY
tranylcypromine [Parnate] 10 mg Tablet
50 mg PO DAILY
famotidine 40 mg Tablet
40 mg PO PRN PRN (Reason: sour stomach)
pantoprazole 40 mg Tablet,Delayed Release (Dr/Ec)
40 mg PO BID
silodosin 8 mg Capsule
8 mg PO DAILY
carvedilol 3.125 mg Tablet
3.125 mg PO BID
calcium carbonate 200 mg calcium (500 mg) Tablet,Chewable
200 mg PO PRN PRN (Reason: Indigestion)
metoclopramide HCl [Reglan] 5 mg Tablet
5 mg PO TIDPRN PRN (Reason: Indigestion)
cyanocobalamin (vitamin B-12) [Vitamin B-12] 1,000 mcg Tablet
1,000 mcg PO DAILY
calcium carbonate [Calcium 600] 600 mg calcium (1,500 mg) Tablet
600 mg PO DAILY
furosemide [Lasix] 20 mg Tablet
20 mg PO DAILY
lycopene 10 mg Capsule
20 mg PO DAILY
zolpidem [Ambien CR] 12.5 mg Tablet,Ext Release Multiphase
12.5 mg PO HSPRN PRN (Reason: Insomnia)
cholecalciferol (vitamin D3) [Vitamin D3] 125 mcg (5,000 unit) Tablet
125 mcg PO DAILY
prednisolone acetate (PF) 1 % Drops,Suspension
1 drp BOTH EYES PRN PRN (Reason: Mucous Buildup)
Lupron Depot (3 month)
1 dose Q3M
mupirocin 2 % ointment
1 applic topical BID Qty: 1 0RF
Patient Comments:
did not apply this am 01/19/25
tramadol 50 mg tablet
50 mg PO Q6H PRN (Reason: 1 tab moderate pain, 2 if severe) Qty: 30 0RF
Rx Instructions:
for post op
dexamethasone 4 mg tablet
4 mg PO BID Qty: 6 0RF
Rx Instructions:
take with food
post-op use only.
post op
gabapentin 300 mg capsule
300 mg PO HS Qty: 10 0RF
Rx Instructions:
*POST-OP USE ONLY
for post op
ondansetron 4 mg tablet,disintegrating
4 mg PO Q6H PRN (Reason: n/v) Qty: 20 0RF
Rx Instructions:
take 1/2h b/f pain med if recurrent nausea
allow to dissolve in mouth w/o water
polyethylene glycol 3350 [Miralax] 17 gram Powder In Packet
17 g PO DAILY
simethicone 80 mg Tablet,Chewable
80 mg PO QPM
simethicone 80 mg Tablet,Chewable
80 mg PO PRN PRN (Reason: gas)
sodium chloride 1,000 mg Tablet,Soluble
500 mg PO BID
lisinopril 20 mg Tablet
20 mg PO BID Qty: 0 0RF
Rx Instructions:
hold systolic blood pressure <130
Eliquis 5 mg Tablet
2.5 mg PO BID Qty: 0 0RF
Rx Instructions:
2.5mg (1/2 tab) twice daily--resume 5mg twice a day dosing on 01/22/25
sennosides [Senokot] 8.6 mg tablet
17.2 mg PO BID Qty: 2 0RF
magnesium hydroxide [Milk of Magnesia] 400 mg/5 mL suspension
30 ml PO HS PRN (Reason: constipation) Qty: 1 0RF
Rx Instructions:
continue taking colace and senokot as advised--if no bowel movement 1 day after surgery -add milk of mag
docusate sodium [Colace] 100 mg capsule
100 mg PO BID Qty: 1 0RF
acetaminophen [Tylenol] 325 mg tablet
650 mg PO QID Qty: 1 0RF
Rx Instructions:
SCHEDULED DOSING
Referrals:
Marcos Adams MD [Family Provider] -
Interventions
Interventions:
*Risk Screen - Suicide Last Done: 01/29/25 21:45
*General Assessment Last Done: 01/29/25 22:03
*Neglect/Abuse Screening Last Done: 01/29/25 21:45
*ED- Fall Risk Assessment Last Done: 01/29/25 22:02
*ED COVID-19 Vaccine History Last Done: 01/29/25 22:02
ED- Pulmonary Assessment Last Done: 01/29/25 21:59
ED- Cardiac Assessment Last Done: 01/29/25 21:59
ED Swallowing Screen Last Done: 01/29/25 22:03
Discharge Date and Time
Print Language: JAPANESE
[2025-01-29] MEDS: NSS 500 IV (22:49)
[2025-01-29 22:52] LABS: Osmolality Serum 265 mOsm/kg (275-300)
[2025-01-29 23:00] VITALS: BP 109/64
--- NOTE | 2025-01-29 23:14 | HPS.HSE ---
Family Physician
-
Family Physician: Marcos Adams
Chief Complaint
-
Acute confusion, nausea, vomiting, constipation, distended abdomen
History of Present Illness
85-year-old male came to the emergency room by EMS after son spoke with him on the telephone at 9:20 PM when he called the son stating he needed help and asking his son to call 911. Upon EMS arrival patient was altered and began vomiting. Son did
speak with his father at 5 PM and his father was normal. Upon arrival in the ER patient was awake having difficulty speaking words were clear he was having very hard time following commands according to emergency room physician and his son. Since
getting 500 cc of saline he is currently more alert and able to follow commands however he is extremely anxious he has poor recall of events. He tells me during his hospital stay he was constipated the PA from the orthopedic group advised him to
increase his fluid intake to 64 ounces from 40 ounces. He believes he did this for approximately 4 days and had a bowel movement on 01/24/2025 however his abdomen is distended with diffuse tympany and he did have episode of vomiting on
arrival. He believes he went back down to 40 ounces but he is unsure. He does state he is taking his sodium chloride tabs 500 mg twice a day. His current sodium is 125 and was 135 on discharge 01/21/2025. He has had chronic hyponatremia for the
past year he has been on recent salt tabs 500 mg twice daily and fluid restrict [address] Kim. He complains of feeling foggy in his head, weak, confused, constipated, nausea, vomiting. He denies fever, chills, headache,
chest pain, palpitations, cough, shortness of breath, diarrhea, urinary symptoms. Initially due to his confusion it was thought he possibly could have CVA he had CT of head and CTA of head neck in the ER given history of TIA.
The patient has past medical history of TIA with subsequent loop recorder placement that led to diagnosis of A-fib, GERD/Hauser's esophagus, lymphocytic colitis, HTN, HLD, chronic hyponatremia siadh, vertigo, paroxysmal A-fib, nonsustained V. tach
01/20/2025, osteoarthritis status post right total hip arthroplasty 01/19/[address] Walker, BPH, diverticulosis, seasonal allergies
Patient had recent admission 01/19-01/21/25 for osteoarthritis status post right total hip arthroplasty he had episode of nonsustained V. tach as well as paroxysmal A-fib he resumed his Eliquis on postop day 3 and continued his beta-duy.
Medical History
Past Medical History
Past Medical History: Reports Other
Additional Past Medical History:
nonsustained V. tach 01/20/2025
TIA with subsequent loop recorder placement that led to diagnosis of A-fib
Paroxysmal A-fib
HTN
HLD
Osteoarthritis status post right total hip arthroplasty 01/19/[address] Walker,
GERD/Hauser's esophagus
Lymphocytic colitis
Diverticulosis
chronic hyponatremia/SIADH
Vertigo
BPH
Seasonal allergies
Past Surgical History: Reports Other
Additional Past Surgical History:
osteoarthritis status post right total hip arthroplasty 01/19/[address] Walker
Right open knee surgery x 2
Tonsillectomy adenoidectomy
Bilateral cataract extraction 2012
Left knee arthroscopic surgery
Loop recorder
Social History
Tobacco: Non-smoker
Alcohol: None
Drug: None
Personal: Single
Living: Alone
Employment: Retired
Family History
Family History: Other (Father A-fib, CVA, HTN, heart disease, mother MVA, paternal aunt breast cancer, maternal uncle prostate cancer, siblings 2 sisters breast cancer, sister HTN, A-fib pessary EGD for cardiac disease)
Allergies / Home Medications
Allergies reflects when Allergies were last updated in [employer].
Home Medications with original date entered in [employer]
Allergy/Medication List:
Allergies
Allergy/AdvReac Type Severity Reaction Status Date / Time
codeine Allergy Nausea Verified 01/29/25 21:56
hydrochlorothiazide Allergy low sodium Verified 01/29/25 21:56
hydrocodone [From Vicodin] Allergy Nausea Verified 01/29/25 21:56
Home Medications
atorvastatin 20 mg tablet 20 mg PO DAILY 10/07/22
famotidine 40 mg tablet 40 mg PO PRN PRN sour stomach 10/07/22
pantoprazole 40 mg tablet,delayed release 40 mg PO BID 10/07/22
silodosin 8 mg capsule 8 mg PO DAILY 10/07/22
tranylcypromine 10 mg tablet (Parnate) 50 mg PO DAILY anxiety 10/07/22
calcium carbonate 200 mg PO PRN PRN Indigestion 08/13/23
carvedilol 3.125 mg tablet 3.125 mg PO BID 08/13/23
metoclopramide HCl 5 mg tablet (Reglan) 5 mg PO TIDPRN PRN Indigestion 04/23/24
Lupron Depot (3 month) 1 dose Q3M 12/24/24
calcium carbonate (Calcium 600) 600 mg PO DAILY 12/24/24
cholecalciferol (vitamin D3) 125 mcg (5,000 unit) tablet (Vitamin D3) 125 mcg PO DAILY 12/24/24
cyanocobalamin (vitamin B-12) 1,000 mcg tablet (Vitamin B-12) 1,000 mcg PO DAILY 12/24/24
furosemide 20 mg tablet (Lasix) 20 mg PO DAILY 12/24/24
lycopene 10 mg capsule 20 mg PO DAILY 12/24/24
prednisolone acetate (PF) 1 % eye drops,suspension 1 drp BOTH EYES PRN PRN Mucous Buildup 12/24/24
zolpidem 12.5 mg tablet,extended release,multiphase (Ambien CR) 12.5 mg PO HSPRN PRN Insomnia 12/24/24
gabapentin 300 mg capsule 300 mg PO HS sleep/pain #10 caps 12/27/24
ondansetron 4 mg disintegrating tablet 4 mg PO Q6H PRN n/v #20 tabs 12/27/24
tramadol 50 mg tablet 50 mg PO Q6H PRN 1 tab moderate pain, 2 if severe #30 tabs 12/27/24
polyethylene glycol 3350 17 gram oral powder packet (Miralax) 17 g PO DAILY 01/12/25
simethicone 80 mg chewable tablet 80 mg PO PRN PRN gas 01/12/25
simethicone 80 mg chewable tablet 80 mg PO QPM 01/12/25
sodium chloride 1,000 mg soluble tablet 500 mg PO BID 01/12/25
acetaminophen 325 mg tablet (Tylenol) 650 mg (2 x 325 mg) PO QID #1 tab 01/19/25
docusate sodium 100 mg capsule (Colace) 100 mg PO BID stool softner #1 cap 01/19/25
lisinopril 20 mg tablet 20 mg PO BID #0 tabs 01/19/25
magnesium hydroxide 400 mg/5 mL oral suspension (Milk of Magnesia) 30 ml PO HS PRN constipation #1 mL 01/19/25
sennosides 8.6 mg tablet (Senokot) 17.2 mg (2 x 8.6 mg) PO BID laxative #2 tabs 01/19/25
apixaban 5 mg tablet (Eliquis) 5 mg PO BID Blood clot prevention/tx/afib 01/29/25
Review of Systems
-
History Source: Patient and Family (Son at bedside)
Constitutional: Reports Other (Anxious, confused); Denies Fever
EENT: Reports Other (Dry oral mucosa); Denies Sore Throat or Runny Nose
Respiratory: Denies Cough or Trouble Breathing
Cardiac: Denies Chest Pain, Diaphoresis, Palpitations or Syncope
Abdomen/GI: Reports Abdominal Pain (Distended abdomen), Nausea, Vomiting and Constipated (Last bowel movement 01/24/2025); Denies Diarrhea, Bloody Stools or Black Stools
: Denies Dysuria, Frequency, Flank Pain, Incontinence, Difficulty Voiding or Urgency
Musculoskeletal: Reports Edema (+2 right lower extremity status post right hip arthroplasty); Denies Joint Pain
Skin: Denies Itching or Rash
Neurological: Reports Weakness (Generalized); Denies Dizzy or Headache
Endocrine: Reports No Symptoms
Hematologic/Lymphatic: Reports No Symptoms
Psych: Reports Anxiety
Physical Exam
Vital Signs
Vital Signs
Pulse Resp BP Pulse Ox
90 20 128/74 100
01/29/25 22:00 01/29/25 22:00 01/29/25 22:00 01/29/25 22:00
Physical Exam
General: Other (Anxious, confusion); No Pain, Fever or Chills
HEENT: NormoCephalic, Anicteric, PERRLA, Sn[place] Conjunctivae, No Ptosis and Other (Dry oral mucosa)
Respiratory: Clear; No Wheezes, Rales or Rhonchi
Cardiac: S1/S2, Regular Rhythm and Peripheral Edema (+2 right lower extremity status post right hip arthroplasty); No Murmur, Rub or Gallop
Breast: Deferred by me
GI: Tender (Generalized with diffuse tympany), Distended and Other (Hypoactive bowel sounds)
Genito-urinary: Deferred by me
Musculoskeletal: No Clubbing, No Cyanosis and Edema, Right Lower Extremity (+2 right lower extremity status post right hip replacement); No Edema, Left Upper Extremity, Edema, Right Upper Extremity or Edema, Left Lower Extremity
Skin: Warm and Dry; No Rash
Neuro: No Sensory Deficits and Other (Patient is very anxious he is somewhat confused of events he is oriented to name and son and only some updates but not reliable); No Slurred Speech, Facial Droop, Tremors or Sedated
Psych: Anxious
Laboratory Results
-
01/29/25 21:39
01/29/25 21:39
Laboratory Results
PT 15.9 Sec (11.4-14.6) H 01/29/25 21:39
INR 1.24 01/29/25 21:39
APTT 32.6 Sec (23.4-35.0) 01/29/25 21:39
Total Bilirubin 1.0 mg/dl (0.2-1.3) 01/29/25 21:39
AST 17 U/L (17-59) 01/29/25 21:39
ALT 16 U/L (0-50) 01/29/25 21:39
Alkaline Phosphatase 114 U/L (38-126) 01/29/25 21:39
Troponin I < 0.012 ng/ml 01/29/25 21:39
Data Reviewed
-
Lab Data: Labs Reviewed by me
Impression/Plan
-
Impression/plan:
Admit to telemetry
#Acute on chronic symptomatic hyponatremia
1 episode of vomiting witnessed by EMS, acute confusion, weakness, vomiting nausea
NA 125 <from 135 on 01/21/2025
Check TSH with free T4 reflex
Urine Osmo, urine NA, serum Osmo, UA reflex to culture
Patient followed by Dr. Kim who recommended fluid restriction and salt tabs
Patient had been drinking 64 ounces a day for approximately 4 days due to constipation
- Fluid restrict 40 ounce
- Resume sodium chloride 500 mg p.o. twice daily, Lasix 20 mg daily
- Patient given 500 cc of IV NSS
- Consult nephrology
-N.p.o.
-Hold Eliquis
-Start IV heparin
- Start 3% NSS at 20 cc an hour
#Confusion likely secondary to hyponatremia but concern for initial TIA versus CVA given focal narrowing right PROVIDER NETWORK ANALYST distal P2 and P3 segment
#TIA history
Eliquis being held due to concern for bowel obstruction
Patient will be on IV heparin drip
-Neurology
-Neurochecks every 4 hours
-Check lipid profile, HgbA1c
CT head: No acute intracranial hemorrhage white matter small vessel ischemic disease
CT angio head neck: No major arterial vascular occlusion
severe focal narrowing right PROVIDER NETWORK ANALYST distal P2 and P3 segment
#Acute constipation/abdominal distention with vomiting concern for possible bowel obstruction
- check CT abdomen pelvis
-N.p.o.
-IV Protonix twice daily, IV Pepcid 20 twice daily
-IV Zofran as needed
-If positive for SBO will need GI and surgery consult
#Nonsustained V. tach 01/20/2025 postop left hip arthroplasty
#TIA with subsequent loop recorder placement that led to diagnosis of A-fib
#Paroxysmal A-fib
- Hold Eliquis 5 mg twice daily was held for 3 days was resumed on 01/22/2024
- Hold carvedilol 3.125 mg p.o. twice daily
2D echo 11/04/2023: EF 55% normal LV S LVSF, mild LVH, mild MR/AR/TR, PASP 28 mmHg, trace pulmonic regurg
- Follows with [facility]
#Osteoarthritis status post right total hip arthroplasty 01/19/[address] Walker,
Hold Tylenol 650 mg 4 times daily
- Hold gabapentin 300 mg at bedtime
- Hold if he is 120 tramadol 50 mg p.o. every 6 hours as needed moderate to severe pain
#HTN
BP 128/74
- Hold lisinopril 20 mg twice daily with hold parameters
- IV hydralazine as needed
#HLD
- Hold atorvastatin 20 mg daily
#GERD/Hauser's esophagus
#Lymphocytic colitis
#Diverticulosis
-Follows with GI, Last Endo 07/22/2023 normal esophagus small hiatal hernia erythematous mucosa gastric body and antrum
- IV famotidine 40 mg as needed upset stomach, continue calcium carbonate 600 mg daily, calcium carbonate 200 mg indigestion
- Continue IV Zofran 4 mg every 6 hours as needed, Reglan 5 mg p.o. 3 times daily as needed
- Protonix 40 mg IV twice daily
- HOLD simethicone 80 mg every afternoon and 80 mg p.o. as needed gas
- HOLD MiraLAX 17 g p.o. daily, Colace 100 mg p.o. twice daily
#Vertigo
#BPH
Bladder scans
- HOLD- silodosin 8 mg p.o. daily
#Seasonal allergies
- No reported meds
#Anxiety
HOLD Parnate 50 mg p.o. daily
#Insomnia
Hold Ambien 12.5 mg at bedtime as needed
DVT prophylaxis
HOLD Eliquis 5 mg twice daily, will start IV heparin drip no bolus
Full code
[2025-01-30] VITALS (10 sets, daily range): BP systolic 91–141; BP diastolic 51–88; PULSE 79; O2SAT 96; BMI 28.4
[2025-01-30 00:24] LABS: Urine Albumin Negative (Neg - Trace); Urine Bilirubin Negative (Negative); Urine Character Clear (Clear); Urine Color Yellow; Urine Glucose Negative (Negative); Urine Ketone 1+ (Negative); Urine Leukocyte Negative (Negative); Urine Nitrite Negative (Negative); Urine Occult Blood Negative (Negative); Urine Urobilinogen Negative (Neg - 1+)
[2025-01-30 00:25] LABS: Osmolality Urine 528 mOsm/kg (300-900)
[2025-01-30 00:31] LABS: Urine Sodium 53 mmol/L (30-90)
--- NOTE | 2025-01-30 00:50 | W.PN.UPDATE ---
Update Note
Progress Note Update
Patient seen in conjunction with GARMENT PARTS CUTTER MACHINE. I agree the findings. I Concur with the Assessment and Plan Listed Otherwise.
This Is a 85-year-old with past Medical History Significant for Atrial Fibrillation on Anticoagulation, hypertension, chronic hyponatremia Secondary to SIADH on fluid restriction, history of prostate cancer and prior TIA who recently underwent hip
surgery and was found to be hyponatremic at that time presents now to the emergency department with altered mental status initially thought to be a CVA TIA and was found to be hyponatremic again to 125.
Patient is a poor historian. Per son the patient called to ask for help at around 9:20 PM. Son called EMS. EMS arrived and found the patient altered and vomiting. At 5 PM he apparently was normal. Stroke alert was initiated and patient was
brought to the emergency department where upon arrival he was awake but was having difficulty speaking. Words clear but that he had difficulty following commands. He apparently improved after about 500 cc of normal saline. He was found to be
hyponatremic again to 125.
During his last admission for a right hip arthroplasty he was found to be hyponatremic to as low as 127 he was placed on salt tabs and fluid restriction and he had improvement to the 130s at the time of discharge. Revised that is complaining of
constipation and was told to liberalize his fluid intake and for the last few days he has been drinking 64 ounces of fluid. He eventually with the aid of laxatives did have bowel movement but he still continues to have abdominal discomfort and
abdominal distention. He had a small bowel movement in the ED. He denies prior history of intra-abdominal surgeries. He has no history of IBD.
In the emergency department he was afebrile, blood pressure was 128/74 with a pulse of 90 and was satting 100% on room air. CBC was completely unremarkable stop electrolytes notable for sodium of 125 but otherwise [address]able.
CT of the head shows no acute stroke or bleed mass effect. The angiogram did reveal severe focal narrowing of the right STEAM AND POWER SUPERVISOR in the distal P2/P3 segment.
On exam he does have abdominal bloating and he did vomit. There is concern for bowel obstruction.
The hyponatremia is likely explained by free water liberalization which may or may not fully explain his afferent presentation with altered mental status. There remains concern for a TIA.
1. Hyponatremia -acute on chronic likely exacerbated by free water liberalization to 6 4 ounces daily given symptoms will likely need to have more rapid correction.
- admit to telemetry
- NPO for now given bowel concerns
- hypertonic saline at 20ml/hr
- repeat lytes in 4 - 6 hours
- nephrology consultation
2. TIA - New narrowing of R STEAM AND POWER SUPERVISOR compared to 2022
- aspirin/statin when tolerating po
- neurochecks
- mri brain in am
- metabolic panel, tsh
- neurology consultation
3. Constipation/Abdominal obstruction - Constipation vs SBO
- obtain non-contrast CT
- npo for now
- iv ppi, antiemetics
- laxatives vs surgical evaluation depending on findings
4. AFIB
- recent diagnosis of afib, on ac,
- rate control with coreg
- hold eliquis pending eval for sbo
- heparin gtt without bolusing for now
5. Medication recon
- holding lasix while npo, on hypertonic saline
- holding lisinopril
- prn hydralazine for bp
DVT PPX - on AC
Code status - Full Code
[2025-01-30] MEDS: NSS (PRESERVATIVE FREE) 10 ML IV ×2 (01:10→07:32)
[2025-01-30] MEDS: PROTONIX IV 40 MG IV ×2 (01:10→07:32)
[2025-01-30 01:11] LABS: Hematocrit 33.6 % (39.0-52.0); Hemoglobin 11.9 g/dL (13.0-18.0); Mean Corp Hgb Conc. 35.4 g/dL (33.0-37.0); Mean Corpuscular Hgb 30.4 pg (27.0-31.0); Mean Corpuscular Volume 85.9 fL (80.0-94.0); Mean Platelet Volume 9.9 fL (7.4-10.4); Platelet Count 162 10^3/uL (130-400); Red Blood Cell Count 3.91 10^6/uL (4.70-6.10); Red Cell Dist. Width 13.2 % (11.5-14.5); White Blood Cell Count 9.2 10^3/uL (4.8-10.8)
[2025-01-30] MEDS: HEPARIN 25000 UNITS/250 ML IV (01:18)
[2025-01-30] MEDS: SODIUM CHLORIDE 3% 250 IV (01:18)
[2025-01-30 01:19] LABS: APTT 32.9 Sec (23.4-35.0)
[2025-01-30 01:25] LABS: TSH Reflex To Free T4 2.41 uIU/ml (0.47-4.68)
--- NOTE | 2025-01-30 03:02 | PTCARENOTE ---
Received patient from ER. stable vitals. AAOx3, forgetful. Heparin IV / 3% Nacl infusing as ordered. Afib in 90s on tele. Neuro check WNL. POC reviewed with patient.
[2025-01-30] MEDS: DULCOLAX 10 MG RECTAL (05:31)
--- NOTE | 2025-01-30 07:32 | CON.NEURO ---
Consultation
Order
Date of Consultation: 01/30/25
Requesting Provider:Veronica Lozada CRNP
Reason for Consult: Encephalopathy
Neurology Consultation Note.
HPI: This is an 85-year-old RH man who presented to [facility] on January 29, 2025 with emesis and encephalopathy.
Mr. Villanueva is unable to provide a history leading to the hospitalization.
The patient reports that his primary concern is blood pressure issues, with readings sometimes dropping into the eighties. 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
and inquired about dizziness.
Mr. Castro was reportedly experiencing difficulty with his blood pressure management post-surgery. He states that the hospital did not inform him to hold his lisinopril medication, which may have contributed to his low blood pressure.
On the night of admission, Mr. Short's son reports that his father called him, experiencing labored breathing. Emergency services were called, and upon arrival, they found the patient covered in vomit.
VS by EMS: 132/71, 74, 92% on room air.
ER VS: 128/74-91/51, 81, afebrile
EKG: A-fib
PDMP:Tramadol Hcl 50 Mg 28 tablets filled in on 01/28/2025, zolpidem 12.5 mg 30 tablets filled in on 01/27/2025,
Labs: Glucose�114, normal WBCs, sodium�125, normal creatinine, TSH LDL�222P
Brain MRI�mild to moderate atrophy. No acute infarcts
CTA head/neck�no hemodynamically significant stenosis
According to patient's son Mr. Villanueva has no cognitive deficits at baseline.
PMH: PA A-fib, TIA, L1 compression fracture, NSVT, SIADH, prostate cancer, HTN, DLP, insomnia, vitamin B12 deficiency, BPH, vertigo, GERD/Hauser's esophagus
PSH:ILR, R HANNA(01/19/25), bilateral cataract extraction, tonsillectomy, R TKA
SH: single, lives alone, retired, non-smoker
FH:Father A-fib, CVA; mother MVA
All: Hydrocodone, HCTZ, codeine
ROS: Constitutional: Negative. Negative for chills, fever and unexpected weight change.
HENT: Positive for hearing impairment
Eyes: Negative. Negative for photophobia, pain and visual disturbance.
Respiratory: Negative for cough, choking and shortness of breath.
Cardiovascular: Negative for chest pain, palpitations and leg swelling.
Gastrointestinal: Positive for constipation, emesis
Endocrine: Negative. Negative for cold intolerance.
Genitourinary: Negative for dysuria, flank pain and urgency.
Musculoskeletal: Positive for right hip tenderness
Skin: Negative for rash.
Allergic/Immunologic: Negative. Negative for immunocompromised state.
Neurological: Positive for encephalopathy
General: Well developed. In no acute distress.
Cardio: Regular rate and rhythm without murmur. Extremities are without cyanosis or edema.
Neuro:
Mental Status: Alert, oriented to person, place, month, year not to date. Increased processing time, difficulties following complex requests across midline and during serial sevens. Fluent. No hemineglect.
Cranial Nerves: Pupils are equally, surgical. EOMs full. Visual josue full to confrontation. No ptosis. No nystagmus. V1-V3 intact to light touch and pinprick bilaterally, symmetric. Face symmetric. Impaired hearing AU. The palate elevated
well. SCMs and traps 5/5. Tongue midline. No dysarthria.
Motor: Normal bulk and tone. No pronator or arm drift. Strength 5/5 throughout. No clonus.
Reflexes: Trace throughout. Grasp on the left.
Sensory: Absent vibration in the toes and ankles
Coordination: No dysmetria or tremor.
Gait: deferred
Assessment and Plan:
I. Acute encephalopathy (metabolic, toxic, vascular)
II. Severe distal symmetric large fiber polyneuropathy
III. PA A-fib
- Avoid cerebral hypoperfusion
- Follow-up vitamin B12, folate, TFTs, SPEP, vitamin B1, urine tox
- Continue Eliquis for secondary stroke prophylaxis
- Outpatient neurology follow-up
- Please recall neurology services any questions or concerns
I personally reviewed all radiology and labs along with past medical records pertinent to current medical problems. Total time spent in patient care is 60 minutes.
Thank you for allowing us to participate in the care of this patient. Please do not hesitate to contact us with any questions or concerns.
Subjective/Objective
Subjective Data
Date of Service: January 30, 2025
Objective Data
Vital Signs
Temp Pulse Resp BP Pulse Ox
36.7 C 68 16 117/57 100
01/30/25 04:27 01/30/25 04:27 01/30/25 04:27 01/30/25 04:27 01/30/25 04:27
PT 15.9 Sec (11.4-14.6) H 01/29/25 21:39
INR 1.24 01/29/25 21:39
APTT 32.9 Sec (23.4-35.0) 01/30/25 01:02
Sodium 125 mmol/L (135-145) L 01/29/25 21:39
Potassium 4.0 mmol/L (3.5-5.1) 01/29/25 21:39
BUN 31 mg/dl (9-20) H 01/29/25 21:39
Glucose 114 mg/dl (70-99) H 01/29/25 21:39
Calcium 8.4 mg/dl (8.4-10.2) 01/29/25 21:39
Patient Allergies
codeine Allergy (Verified 01/29/25 21:56)
Nausea
hydrochlorothiazide Allergy (Verified 01/29/25 21:56)
low sodium
hydrocodone [From Vicodin] Allergy (Verified 01/29/25 21:56)
Nausea
Medications
-
Active Medications
Generic Name Dose Route Start Last Admin
Trade Name Freq PRN Reason Stop Dose Admin
Famotidine 20 mg 01/30/25 08:00
Famotidine 20 Mg/2 Ml Vial IV 02/27/25 07:59
Q12 DUSTY
Heparin Sodium 7,000 units 01/30/25 00:28
Heparin 80 Units/Kg Rebolus-Do Not Discard IV 02/27/25 00:27
PRN PRN
PTT < OR = 64 seconds
Heparin Sodium 3,500 units 01/30/25 00:28
Heparin 40 Units/Kg Rebolus-Do Not Discard IV 02/27/25 00:27
PRN PRN
PTT = 64.1 to 72.9 seconds
Hydralazine HCl 10 mg 01/30/25 01:32
Hydralazine 20 Mg/Ml Vial IV 02/27/25 01:31
Q6HPRN PRN
sbp>165 king>110
Heparin Sodium 25,000 units in 250 mls @ 0 mls/hr 01/30/25 00:15 01/30/25 01:18
Heparin 92819 Units/250 Ml IV 250 mls
PER PROTOCOL DUSTY Administration
Protocol
Per Protocol
Sodium Chloride 250 mls @ 20 mls/hr 01/30/25 01:00 01/30/25 01:18
Sodium Chloride 3% IV 01/30/25 13:29 250 mls
ONCE ONE Administration
Ondansetron HCl 4 mg 01/30/25 01:32
Ondansetron 4 Mg/2 Ml Vial IV 02/27/25 01:31
Q6HPRN PRN
nausea and vomiting
Pantoprazole Sodium 40 mg 01/30/25 08:00
Pantoprazole Sodium 40 Mg/10 Ml Vial IV 02/27/25 07:59
BID DUSTY
Sodium Chloride 0 flush 01/29/25 23:00
Sodium Chloride 0.9% (Flush) Syringe IV 02/26/25 22:59
PER PROTOCOL DUSTY
Sodium Chloride 10 ml 01/30/25 01:00 01/30/25 01:10
Sodium Chloride 0.9% (Preservative Free) 10 Ml Vial IV 02/27/25 00:59 10 ml
BID DUSTY Administration
Home Medications
�Medication �Instructions �Recorded
atorvastatin 20 mg tablet 20 mg PO DAILY 10/07/22
famotidine 40 mg tablet 40 mg PO PRN PRN sour stomach 10/07/22
pantoprazole 40 mg tablet,delayed 40 mg PO BID 10/07/22
release
silodosin 8 mg capsule 8 mg PO DAILY 10/07/22
tranylcypromine 10 mg tablet 50 mg PO DAILY anxiety 10/07/22
(Parnate)
calcium carbonate 200 mg PO PRN PRN Indigestion 08/13/23
carvedilol 3.125 mg tablet 3.125 mg PO BID 08/13/23
metoclopramide HCl 5 mg tablet 5 mg PO TIDPRN PRN Indigestion 04/23/24
(Reglan)
Lupron Depot (3 month) 1 dose Q3M 12/24/24
calcium carbonate (Calcium 600) 600 mg PO DAILY 12/24/24
cholecalciferol (vitamin D3) 125 125 mcg PO DAILY 12/24/24
mcg (5,000 unit) tablet (Vitamin
D3)
cyanocobalamin (vitamin B-12) 1,000 mcg PO DAILY 12/24/24
1,000 mcg tablet (Vitamin B-12)
furosemide 20 mg tablet (Lasix) 20 mg PO DAILY 12/24/24
lycopene 10 mg capsule 20 mg PO DAILY 12/24/24
prednisolone acetate (PF) 1 % eye 1 drp BOTH EYES PRN PRN Mucous 12/24/24
drops,suspension Buildup
zolpidem 12.5 mg tablet,extended 12.5 mg PO HSPRN PRN Insomnia 12/24/24
release,multiphase (Ambien CR)
gabapentin 300 mg capsule 300 mg PO HS sleep/pain #10 caps 12/27/24
ondansetron 4 mg disintegrating 4 mg PO Q6H PRN n/v #20 tabs 12/27/24
tablet
tramadol 50 mg tablet 50 mg PO Q6H PRN 1 tab moderate 12/27/24
pain, 2 if severe #30 tabs
polyethylene glycol 3350 17 gram 17 g PO DAILY 01/12/25
oral powder packet (Miralax)
simethicone 80 mg chewable tablet 80 mg PO PRN PRN gas 01/12/25
simethicone 80 mg chewable tablet 80 mg PO QPM 01/12/25
sodium chloride 1,000 mg soluble 500 mg PO BID 01/12/25
tablet
acetaminophen 325 mg tablet 650 mg (2 x 325 mg) PO QID #1 tab 01/19/25
(Tylenol)
docusate sodium 100 mg capsule 100 mg PO BID stool softner #1 cap 01/19/25
(Colace)
lisinopril 20 mg tablet 20 mg PO BID #0 tabs 01/19/25
magnesium hydroxide 400 mg/5 mL 30 ml PO HS PRN constipation #1 mL 01/19/25
oral suspension (Milk of Magnesia)
sennosides 8.6 mg tablet (Senokot) 17.2 mg (2 x 8.6 mg) PO BID 01/19/25
laxative #2 tabs
apixaban 5 mg tablet (Eliquis) 5 mg PO BID Blood clot 01/29/25
prevention/tx/afib
Vital Signs and Labs
-
Vital Signs and Labs:
Vital Signs
Temp Pulse Resp BP Pulse Ox
36.7 C 88 14 91/51 97
01/30/25 07:45 01/30/25 07:45 01/30/25 07:45 01/30/25 07:45 01/30/25 07:45
Lab Results
01/30/25 07:22
PT 15.9 Sec (11.4-14.6) H 01/29/25 21:39
INR 1.24 01/29/25 21:39
APTT 117.4 Sec (23.4-35.0) H 01/30/25 07:22
Sodium 125 mmol/L (135-145) L 01/29/25 21:39
Potassium 4.0 mmol/L (3.5-5.1) 01/29/25 21:39
BUN 31 mg/dl (9-20) H 01/29/25 21:39
Glucose 114 mg/dl (70-99) H 01/29/25 21:39
Calcium 8.4 mg/dl (8.4-10.2) 01/29/25 21:39
Medications
-
Medications:
Generic Name Dose Route Start Last Admin
Trade Name Freq PRN Reason Stop Dose Admin
Heparin Sodium 7,000 units 01/30/25 00:28
Heparin 80 Units/Kg Rebolus-Do Not Discard IV 02/27/25 00:27
PRN PRN
PTT < OR = 64 seconds
Heparin Sodium 3,500 units 01/30/25 00:28
Heparin 40 Units/Kg Rebolus-Do Not Discard IV 02/27/25 00:27
PRN PRN
PTT = 64.1 to 72.9 seconds
Hydralazine HCl 10 mg 01/30/25 01:32
Hydralazine 20 Mg/Ml Vial IV 02/27/25 01:31
Q6HPRN PRN
sbp>165 king>110
Heparin Sodium 25,000 units in 250 mls @ 0 mls/hr 01/30/25 00:15 01/30/25 01:18
Heparin 88043 Units/250 Ml IV 250 mls
PER PROTOCOL DUSTY Administration
Protocol
Per Protocol
Sodium Chloride 250 mls @ 20 mls/hr 01/30/25 01:00 01/30/25 01:18
Sodium Chloride 3% IV 01/30/25 13:29 250 mls
ONCE ONE Administration
Ondansetron HCl 4 mg 01/30/25 01:32
Ondansetron 4 Mg/2 Ml Vial IV 02/27/25 01:31
Q6HPRN PRN
nausea and vomiting
Pantoprazole Sodium 40 mg 01/30/25 08:00 01/30/25 07:32
Pantoprazole Sodium 40 Mg/10 Ml Vial IV 02/27/25 07:59 40 mg
BID DUSTY Administration
Sodium Chloride 0 flush 01/29/25 23:00
Sodium Chloride 0.9% (Flush) Syringe IV 02/26/25 22:59
PER PROTOCOL DUSTY
Sodium Chloride 10 ml 01/30/25 01:00 01/30/25 07:32
Sodium Chloride 0.9% (Preservative Free) 10 Ml Vial IV 02/27/25 00:59 10 ml
BID DUSTY Administration
Home Medications
-
Home Medications
atorvastatin 20 mg tablet 20 mg PO DAILY 10/07/22
famotidine 40 mg tablet 40 mg PO PRN PRN sour stomach 10/07/22
pantoprazole 40 mg tablet,delayed release 40 mg PO BID 10/07/22
silodosin 8 mg capsule 8 mg PO DAILY 10/07/22
tranylcypromine 10 mg tablet (Parnate) 50 mg PO DAILY anxiety 10/07/22
calcium carbonate 200 mg PO PRN PRN Indigestion 08/13/23
carvedilol 3.125 mg tablet 3.125 mg PO BID 08/13/23
metoclopramide HCl 5 mg tablet (Reglan) 5 mg PO TIDPRN PRN Indigestion 04/23/24
Lupron Depot (3 month) 1 dose Q3M 12/24/24
calcium carbonate (Calcium 600) 600 mg PO DAILY 12/24/24
cholecalciferol (vitamin D3) 125 mcg (5,000 unit) tablet (Vitamin D3) 125 mcg PO DAILY 12/24/24
cyanocobalamin (vitamin B-12) 1,000 mcg tablet (Vitamin B-12) 1,000 mcg PO DAILY 12/24/24
furosemide 20 mg tablet (Lasix) 20 mg PO DAILY 12/24/24
lycopene 10 mg capsule 20 mg PO DAILY 12/24/24
prednisolone acetate (PF) 1 % eye drops,suspension 1 drp BOTH EYES PRN PRN Mucous Buildup 12/24/24
zolpidem 12.5 mg tablet,extended release,multiphase (Ambien CR) 12.5 mg PO HSPRN PRN Insomnia 12/24/24
gabapentin 300 mg capsule 300 mg PO HS sleep/pain #10 caps 12/27/24
ondansetron 4 mg disintegrating tablet 4 mg PO Q6H PRN n/v #20 tabs 12/27/24
tramadol 50 mg tablet 50 mg PO Q6H PRN 1 tab moderate pain, 2 if severe #30 tabs 12/27/24
polyethylene glycol 3350 17 gram oral powder packet (Miralax) 17 g PO DAILY 01/12/25
simethicone 80 mg chewable tablet 80 mg PO PRN PRN gas 01/12/25
simethicone 80 mg chewable tablet 80 mg PO QPM 01/12/25
sodium chloride 1,000 mg soluble tablet 500 mg PO BID 01/12/25
acetaminophen 325 mg tablet (Tylenol) 650 mg (2 x 325 mg) PO QID #1 tab 01/19/25
docusate sodium 100 mg capsule (Colace) 100 mg PO BID stool softner #1 cap 01/19/25
lisinopril 20 mg tablet 20 mg PO BID #0 tabs 01/19/25
magnesium hydroxide 400 mg/5 mL oral suspension (Milk of Magnesia) 30 ml PO HS PRN constipation #1 mL 01/19/25
sennosides 8.6 mg tablet (Senokot) 17.2 mg (2 x 8.6 mg) PO BID laxative #2 tabs 01/19/25
apixaban 5 mg tablet (Eliquis) 5 mg PO BID Blood clot prevention/tx/afib 01/29/25
[2025-01-30 07:35] LABS: % Basophils 0.4 % (0-2); % Immature Granulocytes 2.7 % (0-0.5); % Lymphocytes 8.5 % (20.5-51.1); % Monocytes 13.5 % (1.7-9.3); % Neutrophils 73.9 % (42.2-75.2); Absolute Eosinophils 0.1 10^3/uL (0-0.7); Absolute Immature Granulocytes 0.1 10^3/uL (0-0.05); Absolute Lymphocytes 0.4 10^3/uL (1.2-3.4); Absolute Monocytes 0.7 10^3/uL (0.1-0.6); Absolute Neutrophils 3.8 10^3/uL (1.4-6.5); Hematocrit 32.8 % (39.0-52.0); Hemoglobin 11.7 g/dL (13.0-18.0); Mean Corp Hgb Conc. 35.7 g/dL (33.0-37.0); Mean Corpuscular Hgb 30.9 pg (27.0-31.0); Mean Corpuscular Volume 86.5 fL (80.0-94.0); Mean Platelet Volume 9.6 fL (7.4-10.4); Nucleated Red Blood Cells % 0 % (-); Platelet Count 159 10^3/uL (130-400); Red Blood Cell Count 3.79 10^6/uL (4.70-6.10); Red Cell Dist. Width 13.2 % (11.5-14.5); White Blood Cell Count 5.2 10^3/uL (4.8-10.8)
[2025-01-30 08:12] LABS: APTT 117.4 Sec (23.4-35.0)
[2025-01-30 09:07] LABS: ALT (SGPT) 15 U/L (0-50); AST (SGOT) 17 U/L (17-59); Alkaline Phosphatase 99 U/L (38-126); Blood Urea Nitrogen 20 mg/dl (9-20); Carbon Dioxide 21 mmol/L (22-30); Chloride 103 mmol/L (98-107); Estimated Creatinine Clearance 90 ml/min; Glucose 99 mg/dl (70-99); HDL Cholesterol 38 mg/dl; LDL Cholesterol, Calculated 52 mg/dl; Magnesium 2.2 mg/dl (1.6-2.3); Potassium 3.9 mmol/L (3.5-5.1); Sodium 131 mmol/L (135-145); Total Bilirubin 1.1 mg/dl (0.2-1.3); Total Cholesterol 100 mg/dl (50-199); Total Protein 5.2 g/dl (6.3-8.2); Triglyceride 54 mg/dl (10-149); Very Low Density Lipoprotein 10 mg/dl (0-30); eGFR > 60.00
--- NOTE | 2025-01-30 11:13 | W.CON.NEPH ---
Consultation
-
Date/Time Consultation Requested: 01/30/2025 11 AM
Date/Time Consultation Performed: 01/30/2025 11 AM
Requesting Provider: Dr. Barber
Performing Provider: Dr. Garcia
Reason for Consultation: Hyponatremia
Medical History
-
Chief Complaint: Hyponatremia
History of Present Illness:
This is an 85-year-old gentleman who has seen Dr. Kim in the our office in the past for hyponatremia. He been on different regimens with varying fluid restrictions. More recently as he was gearing up for orthopedic surgery he had a
hyponatremia episodes which has caused delay of the surgery. Ultimately he settled on a regimen of 40 ounce fluid restriction with Lasix 20 mg daily and salt tablets 500 mg twice daily. This had allowed for improvement of his sodium enough for
surgery to be performed. This was done on January 19, 2025. He returns to the emergency room because of mental status change with vomiting. He was noted to have a sodium level of 125. He was given hypertonic saline and is now 131 this morning.
Past Medical History
nonsustained V. tach 01/20/2025
TIA with subsequent loop recorder placement that led to diagnosis of A-fib
Paroxysmal A-fib
HTN
HLD
Osteoarthritis status post right total hip arthroplasty 01/19/[address] Walker,
GERD/Hauser's esophagus
Lymphocytic colitis
Diverticulosis
chronic hyponatremia/SIADH
Vertigo
BPH
Seasonal allergies
osteoarthritis status post right total hip arthroplasty 01/19/[address] Walker
Right open knee surgery x 2
Tonsillectomy adenoidectomy
Bilateral cataract extraction 2012
Left knee arthroscopic surgery
Loop recorder
Social History
Tobacco: Non-Smoker
Alcohol: None
Family History
Family History: Not Pertinent
Allergies / Home Medications
Allergy/AdvReac Type Severity Reaction Status Date / Time
codeine Allergy Nausea Verified 01/29/25 21:56
hydrochlorothiazide Allergy low sodium Verified 01/29/25 21:56
hydrocodone [From Vicodin] Allergy Nausea Verified 01/29/25 21:56
�Medication �Instructions �Recorded �Confirmed �Type
atorvastatin 20 mg tablet 20 mg PO DAILY 10/07/22 01/29/25 History
famotidine 40 mg tablet 40 mg PO PRN PRN sour stomach 10/07/22 01/29/25 History
pantoprazole 40 mg tablet,delayed 40 mg PO BID 10/07/22 01/29/25 History
release
silodosin 8 mg capsule 8 mg PO DAILY 10/07/22 01/29/25 History
tranylcypromine 10 mg tablet 50 mg PO DAILY anxiety 10/07/22 01/29/25 History
(Parnate)
calcium carbonate 200 mg PO PRN PRN Indigestion 08/13/23 01/29/25 History
carvedilol 3.125 mg tablet 3.125 mg PO BID 08/13/23 01/29/25 History
metoclopramide HCl 5 mg tablet 5 mg PO TIDPRN PRN Indigestion 04/23/24 01/29/25 History
(Reglan)
Lupron Depot (3 month) 1 dose Q3M 12/24/24 01/29/25 History
calcium carbonate (Calcium 600) 600 mg PO DAILY 12/24/24 01/29/25 History
cholecalciferol (vitamin D3) 125 125 mcg PO DAILY 12/24/24 01/29/25 History
mcg (5,000 unit) tablet (Vitamin
D3)
cyanocobalamin (vitamin B-12) 1,000 mcg PO DAILY 12/24/24 01/29/25 History
1,000 mcg tablet (Vitamin B-12)
furosemide 20 mg tablet (Lasix) 20 mg PO DAILY 12/24/24 01/29/25 History
lycopene 10 mg capsule 20 mg PO DAILY 12/24/24 01/29/25 History
prednisolone acetate (PF) 1 % eye 1 drp BOTH EYES PRN PRN Mucous 12/24/24 01/29/25 History
drops,suspension Buildup
zolpidem 12.5 mg tablet,extended 12.5 mg PO HSPRN PRN Insomnia 12/24/24 01/29/25 History
release,multiphase (Ambien CR)
gabapentin 300 mg capsule 300 mg PO HS sleep/pain #10 caps 12/27/24 01/29/25 Rx
ondansetron 4 mg disintegrating 4 mg PO Q6H PRN n/v #20 tabs 12/27/24 01/29/25 Rx
tablet
tramadol 50 mg tablet 50 mg PO Q6H PRN 1 tab moderate 12/27/24 01/29/25 Rx
pain, 2 if severe #30 tabs
polyethylene glycol 3350 17 gram 17 g PO DAILY 01/12/25 01/29/25 History
oral powder packet (Miralax)
simethicone 80 mg chewable tablet 80 mg PO PRN PRN gas 01/12/25 01/29/25 History
simethicone 80 mg chewable tablet 80 mg PO QPM 01/12/25 01/29/25 History
sodium chloride 1,000 mg soluble 500 mg PO BID 01/12/25 01/29/25 History
tablet
acetaminophen 325 mg tablet 650 mg (2 x 325 mg) PO QID #1 tab 01/19/25 01/29/25 Rx
(Tylenol)
docusate sodium 100 mg capsule 100 mg PO BID stool softner #1 cap 01/19/25 01/29/25 Rx
(Colace)
lisinopril 20 mg tablet 20 mg PO BID #0 tabs 01/19/25 01/29/25 Rx
magnesium hydroxide 400 mg/5 mL 30 ml PO HS PRN constipation #1 mL 01/19/25 01/29/25 Rx
oral suspension (Milk of Magnesia)
sennosides 8.6 mg tablet (Senokot) 17.2 mg (2 x 8.6 mg) PO BID 01/19/25 01/29/25 Rx
laxative #2 tabs
apixaban 5 mg tablet (Eliquis) 5 mg PO BID Blood clot 01/29/25 01/29/25 History
prevention/tx/afib
Review of Systems
-
No chest pain or shortness of breath
All other systems: Negative unless noted
Physical Exam
Vital Signs
Vital Signs
Temp Pulse Resp BP Pulse Ox
98.0 F 88 14 91/51 97
01/30/25 07:45 01/30/25 07:45 01/30/25 07:45 01/30/25 07:45 01/30/25 07:45
Lab Results
WBC 5.2 10^3/uL (4.8-10.8) 01/30/25 07:22
RBC 3.79 10^6/uL (4.70-6.10) L 01/30/25 07:22
Hgb 11.7 g/dL (13.0-18.0) L 01/30/25 07:22
Hct 32.8 % (39.0-52.0) L 01/30/25 07:22
Plt Count 159 10^3/uL (130-400) 01/30/25 07:22
Sodium 131 mmol/L (135-145) L 01/30/25 07:22
Potassium 3.9 mmol/L (3.5-5.1) 01/30/25 07:22
Chloride 103 mmol/L (98-107) 01/30/25 07:22
Carbon Dioxide 21 mmol/L (22-30) L 01/30/25 07:22
BUN 20 mg/dl (9-20) 01/30/25 07:22
Creatinine 0.6 mg/dL (0.7-1.3) L 01/30/25 07:22
eGFR > 60.00 01/30/25 07:22
Glucose 99 mg/dl (70-99) 01/30/25 07:22
Calcium 8.0 mg/dl (8.4-10.2) L 01/30/25 07:22
Albumin 3.0 g/dl (3.5-5.0) L 01/30/25 07:22
Laboratory Tests
01/30/25
00:01
Urine Osmolality 528
Urine Sodium 53
CT abdomen pelvis 01/30/2025
IMPRESSION:
1. Findings suggestive of constipation. No evidence of intestinal obstruction.
2. Mild sigmoid diverticulosis without evidence of diverticulitis.
3. Small hiatal hernia.
4. Compression fracture of the L1 vertebral body, unchanged compared to prior CT dated 09/17/2018.
Physical Exam
Patient is awake alert oriented and in no distress. Mood and affect were pleasant, insight and judgment were good. Pupils are equal round and reactive to light, extraocular movements are intact, sclera were anicteric. Hearing was normal, ears and
nose are intact. Oropharynx was clear. Neck was supple with trachea midline and no thyromegaly. Heart was regular rate and rhythm without rubs. Lower extremities without edema. Lungs were clear to auscultation bilaterally and with normal
excursion. Abdomen was soft, nontender, with normal active bowel sounds, and no hepatosplenomegaly. Skin was without rash and with normal turgor.
Data Reviewed
-
CT Scan: Report Reviewed by me
MRI: Report Reviewed by me (Brain MRI 01/30/2025 no acute disease)
Labs: Labs Reviewed by me
Old Records: Reviewed
Assessment/Plan
-
Assessment
Hyponatremia acute on chronic
Recent right hip replacement
Mental status change
Constipation, use of tramadol postsurgery
A-fib
Plan
Discontinue 3%
Restart Lasix 20 mg daily
Fluid restriction 40 ounces per day once diet resumed
Follow serial BMP
Restart salt tablets
--- NOTE | 2025-01-30 11:15 | W.PN.HOSP.TC ---
Today's Communication/Plan
-
Stop heparin restart Eliquis
Restart statin
Aggressive laxative regimen
Status post 3% saline
Trend BMP
Assessment / Plan
Assessment / Plan
#Acute on chronic symptomatic hyponatremia
1 episode of vomiting witnessed by EMS, acute confusion, weakness, vomiting nausea
NA 125 <from 135 on 01/21/2025
- Fluid restrict 40 ounce
- Resume sodium chloride 500 mg p.o. twice daily, Lasix 20 mg daily
- Patient given 500 cc of IV NSS in ER
- Consult nephrology
- s/p 3% NSS at 20 cc an hour
- Na improved to 131
# Acute encephalopathy likely toxic versus metabolic
#TIA history
-Neurology
-Neurochecks every 4 hours
-Check lipid profile, HgbA1c
CT head: No acute intracranial hemorrhage white matter small vessel ischemic disease
CT angio head neck: No major arterial vascular occlusion severe focal narrowing right [employer] distal P2 and P3 segment
-Stop heparin gtt-Eliquis restarted
- Further blood work ordered per neurology
#Acute constipation
- CAT scan noted no obstruction
- Start patient on diet. Aggressive laxative ordered
#Nonsustained V. tach 01/20/2025 postop left hip arthroplasty
#TIA with subsequent loop recorder placement that led to diagnosis of A-fib
#Paroxysmal A-fib
Restart carvedilol and Eliquis
2D echo 11/04/2023: EF 55% normal LV S LVSF, mild LVH, mild MR/AR/TR, PASP 28 mmHg, trace pulmonic regurg
- Follows with [facility] cardiology
#Osteoarthritis status post right total hip arthroplasty 01/19/[address] Walker,
-Pain control. PT OT
#HTN
BP 128/74
- Hold lisinopril 20 mg twice daily with hold parameters as with soft blood pressure
- IV hydralazine as needed
#HLD
- Continue statin
#GERD/Hauser's esophagus
#Lymphocytic colitis
#Diverticulosis
- Monitor
#Vertigo
#BPH
Bladder scans
- Continue silodosin 8 mg p.o. daily
#Seasonal allergies
- No reported meds
#Anxiety
HOLD Parnate 50 mg p.o. daily
#Insomnia
Hold Ambien 12.5 mg at bedtime as needed
DVT prophylaxis-ELIQUIS
Discussed with patient's son at bedside in detail
Anticipated Discharge: > 48 hours
Subjective/Interval History
-
Date of Service: January 30, 2025
States he is starting to feel better
Stated had some small bowel movement earlier today
Denies abdominal pain nausea vomiting
Objective Data
-
Labs:
Laboratory Results
01/30/25 01/30/25 01/30/25
01:02 07:22 15:30
WBC 9.2 5.2
Hgb 11.9 L 11.7 L
Hct 33.6 L 32.8 L
Plt Count 162 159
APTT 32.9 117.4 H Pending
Sodium 131 L
Potassium 3.9
Chloride 103
Carbon Dioxide 21 L
BUN 20
Creatinine 0.6 L
Glucose 99
Calcium 8.0 L
Total Bilirubin 1.1
AST 17
ALT 15
Alkaline Phosphatase 99
Vital Signs:
Vital Signs
Temp Pulse Resp BP Pulse Ox
98.0 F 88 14 91/51 97
01/30/25 07:45 01/30/25 07:45 01/30/25 07:45 01/30/25 07:45 01/30/25 07:45
I&O
01/29/25 01/30/25 01/31/25
06:59 06:59 06:59
Output Total 850 / 850
Balance -850 / -850
Physical Exam
-
General: Well Developed and No Apparent Distress
HEENT: Normocephalic, Atraumatic and Moist Mucous Membranes
Respiratory: Clear to Auscultation
Cardiac: Regular Rhythm and S1/S2; Negative Murmur, Rub or Gallop
GI: Soft, Nontender, Nondistended and Normal Bowel Sounds; Negative Organomegaly
Rectal: Deferred by Provider
Musculoskeletal: No Clubbing, No Cyanosis and No Edema
Skin: Negative Rash
Neuro: Awake, No Motor Deficits and Nonfocal/Grossly Intact; Negative Slurred Speech
Psych: Calm
Data Reviewed
-
Total Time Spent with Patient (in minutes): 60
--- NOTE | 2025-01-30 11:37 | CM ---
met with patient and son in room. Patient had R THR on 01/19/[address] Walker. He is active with [facility] PT and has hip precautions. PT to see in and plan [facility] at discharge. He lives alone in one level home with 2 steps to enter.
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
Son is supportive as are neighbors.
PC Dr. Adams
Pharmacy: [facility]
PLAN: [facility]
[2025-01-30] MEDS: ELIQUIS 5 MG PO ×2 (11:50→20:00)
[2025-01-30] MEDS: MIRALAX 17 GRAMS PO (11:51)
[2025-01-30] MEDS: SENOKOT-S 1 TABLET PO ×2 (11:51→19:59)
[2025-01-30] MEDS: DULCOLAX 10 MG PO (11:51)
[2025-01-30] MEDS: LASIX 20 MG PO (11:52)
[2025-01-30 12:03] LABS: Glycohemoglobin (HgbA1c) 5.8 % (4.0-5.6)
[2025-01-30] MEDS: TYLENOL 650 MG PO (12:08)
[2025-01-30] MEDS: SODIUM CHLORIDE 0.5 GRAM PO ×2 (12:49→19:59)
[2025-01-30 13:12] LABS: Erythrocyte Sed Rate 26 mm/hour (0-20)
[2025-01-30 14:14] LABS: Folate 7.9 ng/ml (2.76-20); Vitamin B12 918 pg/ml (239-931)
[2025-01-30] MEDS: TYLENOL PO ×2 (17:23→23:38)
[2025-01-30 18:46] LABS: Blood Urea Nitrogen 20 mg/dl (9-20); Calcium 8.2 mg/dl (8.4-10.2); Carbon Dioxide 19 mmol/L (22-30); Chloride 104 mmol/L (98-107); Estimated Creatinine Clearance 90 ml/min; Glucose 142 mg/dl (70-99); Sodium 132 mmol/L (135-145); eGFR > 60.00
[2025-01-30] MEDS: COREG 3.125 MG PO (19:59)
[2025-01-30] MEDS: PROTONIX 40 MG PO (19:59)
[2025-01-31 03:50] VITALS: BP 131/79
[2025-01-31 06:00] VITALS: BMI 27.9
[2025-01-31 07:45] VITALS: BP 117/80
[2025-01-31] MEDS: ELIQUIS 5 MG PO (07:48)
[2025-01-31] MEDS: SODIUM CHLORIDE 0.5 GRAM PO (07:48)
[2025-01-31] MEDS: VITAMIN B-12 1000 MCG PO (07:49)
[2025-01-31] MEDS: VITAMIN D3 (cholecalciferol) 125 MCG PO (07:49)
[2025-01-31] MEDS: PROTONIX 40 MG PO (07:49)
[2025-01-31] MEDS: SENOKOT-S 1 TABLET PO (07:49)
[2025-01-31] MEDS: TYLENOL PO ×2 (07:49→08:02)
[2025-01-31] MEDS: LIPITOR 20 MG PO (07:49)
[2025-01-31] MEDS: FLOMAX 0.4 MG PO (07:50)
[2025-01-31] MEDS: LASIX 20 MG PO (07:50)
[2025-01-31] MEDS: COREG 3.125 MG PO (07:50)
[2025-01-31] MEDS: MIRALAX 17 GRAMS PO (07:50)
[2025-01-31 08:32] LABS: % Basophils 0.3 % (0-2); % Eosinophils 1.2 % (0-6); % Immature Granulocytes 1.5 % (0-0.5); % Lymphocytes 6.1 % (20.5-51.1); % Monocytes 11.4 % (1.7-9.3); % Neutrophils 79.5 % (42.2-75.2); Absolute Eosinophils 0.1 10^3/uL (0-0.7); Absolute Immature Granulocytes 0.1 10^3/uL (0-0.05); Absolute Lymphocytes 0.4 10^3/uL (1.2-3.4); Absolute Monocytes 0.7 10^3/uL (0.1-0.6); Absolute Neutrophils 4.7 10^3/uL (1.4-6.5); Hematocrit 35.4 % (39.0-52.0); Hemoglobin 12.5 g/dL (13.0-18.0); Mean Corp Hgb Conc. 35.3 g/dL (33.0-37.0); Mean Corpuscular Hgb 30.9 pg (27.0-31.0); Mean Corpuscular Volume 87.6 fL (80.0-94.0); Mean Platelet Volume 9.6 fL (7.4-10.4); Nucleated Red Blood Cells % 0 % (-); Platelet Count 173 10^3/uL (130-400); Red Blood Cell Count 4.04 10^6/uL (4.70-6.10); Red Cell Dist. Width 13.5 % (11.5-14.5); White Blood Cell Count 5.9 10^3/uL (4.8-10.8)
--- NOTE | 2025-01-31 08:34 | VNURNOTE ---
Chart reviewed. Patient is current with [facility] nursing. Will continue to follow hospital course and DC plans.
[2025-01-31 09:06] LABS: ALT (SGPT) 15 U/L (0-50); AST (SGOT) 16 U/L (17-59); Albumin 2.9 g/dl (3.5-5.0); Alkaline Phosphatase 95 U/L (38-126); Blood Urea Nitrogen 13 mg/dl (9-20); Calcium 8.4 mg/dl (8.4-10.2); Carbon Dioxide 22 mmol/L (22-30); Chloride 105 mmol/L (98-107); Estimated Creatinine Clearance 90 ml/min; Glucose 99 mg/dl (70-99); Potassium 3.9 mmol/L (3.5-5.1); Sodium 132 mmol/L (135-145); Total Bilirubin 1.1 mg/dl (0.2-1.3); Total Protein 5.2 g/dl (6.3-8.2); eGFR > 60.00
--- NOTE | 2025-01-31 10:12 | W.PN.HOSP.TC ---
Today's Communication/Plan
-
Discharge
Assessment / Plan
Assessment / Plan
Gen-AAOx3, NAD
HEENT-NC, AT, anicteric, clear oral mm
Neck-supple
CV-reg, no M, +S1/S2
Lungs-clear B/L
Abd-soft, NT, ND
Ext-no edema
Musculoskeletal-no cyanosis, clubbing
Skin-warm and dry
Neuro-grossly non-focal
Psych-calm, cooperative
Acute on chronic symptomatic hyponatremia
1 episode of vomiting witnessed by EMS, acute confusion, weakness, vomiting nausea
NA 125 <from 135 on 01/21/2025
- Fluid restrict 40 ounce
- Resume sodium chloride 500 mg p.o. twice daily, Lasix 20 mg daily
- Patient given 500 cc of IV NSS in ER
- Consult nephrology
- s/p 3% NSS at 20 cc an hour
- Na improved to 132
Acute encephalopathy likely toxic versus metabolic
TIA history
-Neurology
-Neurochecks every 4 hours
-Check lipid profile, HgbA1c
CT head: No acute intracranial hemorrhage white matter small vessel ischemic disease
CT angio head neck: No major arterial vascular occlusion severe focal narrowing right DESIGN DIRECTOR distal P2 and P3 segment
-Stop heparin gtt-Eliquis restarted
- Further blood work ordered per neurology
Acute constipation
- CAT scan noted no obstruction
- Start patient on diet. Aggressive laxative ordered
Nonsustained V. tach 01/20/2025 postop left hip arthroplasty
TIA with subsequent loop recorder placement that led to diagnosis of A-fib
Paroxysmal A-fib
Restart carvedilol and Eliquis
2D echo 11/04/2023: EF 55% normal LV S LVSF, mild LVH, mild MR/AR/TR, PASP 28 mmHg, trace pulmonic regurg
- Follows with [facility]
Osteoarthritis status post right total hip arthroplasty 01/19/[address] Walker,
-Pain control. PT OT
Essential HTN
BP 128/74
- Hold lisinopril 20 mg twice daily with hold parameters as with soft blood pressure
- IV hydralazine as needed
Hyperlipidemia
- Continue statin
GERD/Hauser's esophagus
Lymphocytic colitis
Diverticulosis
- Monitor
Vertigo
BPH
Bladder scans
- Continue silodosin 8 mg p.o. daily
Seasonal allergies
- No reported meds
Anxiety
HOLD Parnate 50 mg p.o. daily
Insomnia
Hold Ambien 12.5 mg at bedtime as needed
DVT prophylaxis-ELIQUIS
Dispo -medically stable for discharge home today. Outpatient follow-up. Discussed with nephrology. BMP next week. Fluid restriction, furosemide, salt tablets on discharge.
32 minutes spent in discharge process.
Anticipated Discharge: Today
Subjective/Interval History
-
Date of Service: January 31, 2025
Patient seen and examined. Eager to go home. No complaints.
Objective Data
-
Labs:
Laboratory Results
01/31/25
08:20
WBC 5.9
Hgb 12.5 L
Hct 35.4 L
Plt Count 173
Sodium 132 L
Potassium 3.9
Chloride 105
Carbon Dioxide 22
BUN 13
Creatinine 0.6 L
Glucose 99
Calcium 8.4
Total Bilirubin 1.1
AST 16 L
ALT 15
Alkaline Phosphatase 95
Vital Signs:
Vital Signs
Temp Pulse Resp BP Pulse Ox
97.7 F 98 16 117/80 98
01/31/25 07:45 01/31/25 07:50 01/31/25 07:45 01/31/25 07:50 01/31/25 09:39
I&O
01/30/25 01/31/25 02/01/25
06:59 06:59 06:59
Intake Total 1440 / 1440
Output Total 850 / 850 400 / 400
Balance -850 / -850 1040 / 1040
Review of Systems
-
History Source: Patient
All other systems: Reviewed and negative
--- NOTE | 2025-01-31 10:14 | W.PN.NEPH.PH ---
Today's Communication / Plan
-
Stable for discharge on sodium tablets Lasix and fluid restrict
Assessment/Plan
-
Assessment
Hyponatremia acute on chronic
Recent right hip replacement
Mental status change
Constipation, use of tramadol postsurgery
A-fib
Plan
Sodium stable at 132
Restart Lasix 20 mg daily
Fluid restriction 40 ounces per day once diet resumed
Follow serial BMP
Restarted salt tablets
Stable for discharge
-
-
Date of Service: January 31, 2025
CC / HPI / ROS
-
Chief Complaint:
Hyponatremia
History of Present Illness:
Serum sodium up to 132 on fluid restriction sodium tablets and Lasix 20 mg to
Hemodynamically stable on low-dose carvedilol
Review of Systems:
Nonoliguric
No fever
No shortness of breath
Labs
-
Labs:
WBC 5.9 10^3/uL (4.8-10.8) 01/31/25 08:20
RBC 4.04 10^6/uL (4.70-6.10) L 01/31/25 08:20
Hgb 12.5 g/dL (13.0-18.0) L 01/31/25 08:20
Hct 35.4 % (39.0-52.0) L 01/31/25 08:20
Plt Count 173 10^3/uL (130-400) 01/31/25 08:20
Sodium 132 mmol/L (135-145) L 01/31/25 08:20
Potassium 3.9 mmol/L (3.5-5.1) 01/31/25 08:20
Chloride 105 mmol/L (98-107) 01/31/25 08:20
Carbon Dioxide 22 mmol/L (22-30) 01/31/25 08:20
BUN 13 mg/dl (9-20) 01/31/25 08:20
Creatinine 0.6 mg/dL (0.7-1.3) L 01/31/25 08:20
eGFR > 60.00 01/31/25 08:20
Glucose 99 mg/dl (70-99) 01/31/25 08:20
Calcium 8.4 mg/dl (8.4-10.2) 01/31/25 08:20
Albumin 2.9 g/dl (3.5-5.0) L 01/31/25 08:20
Physical Exam
-
Vital Signs:
Vital Signs
Temp Pulse Resp BP Pulse Ox
97.7 F 98 16 117/80 98
01/31/25 07:45 01/31/25 07:50 01/31/25 07:45 01/31/25 07:50 01/31/25 09:39
Cardiovascular:: Regular rate and rhythm
Respiratory:: Bilateral: CTA
Lung Excursion:: Normal
Abdomen:: Nontender and Soft
Extremity Edema:: None: Bilateral:
Norman Catheter: No
--- NOTE | 2025-01-31 10:20 | W.DS.TRANS ---
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
-
Discharge Instructions:
Discharge Diagnosis/Procedures Symptomatic hyponatremia
Diet Low Fat,Low Cholesterol,Other diet
Additional Diets 40 ounce daily fluid restriction
Activity As tolerated
Driving Restrictions As prior to admission
Bathing Restrictions None
Blood Work BMP next week with your primary care doctor
Instructions:
Stand-Alone Forms:
Changes to Home Medications: No
Discharge Medications:
DC Medications w/original date entered in [facility]
atorvastatin 20 mg tablet 20 mg PO DAILY 10/07/22
pantoprazole 40 mg tablet,delayed release 40 mg PO BID 10/07/22
silodosin 8 mg capsule 8 mg PO DAILY 10/07/22
tranylcypromine 10 mg tablet (Parnate) 50 mg PO DAILY anxiety 10/07/22
calcium carbonate 200 mg PO PRN PRN Indigestion 08/13/23
carvedilol 3.125 mg tablet 3.125 mg PO BID 08/13/23
metoclopramide HCl 5 mg tablet (Reglan) 5 mg PO TIDPRN PRN Indigestion 04/23/24
Lupron Depot (3 month) 1 dose Q3M 12/24/24
calcium carbonate (Calcium 600) 600 mg PO DAILY 12/24/24
cholecalciferol (vitamin D3) 125 mcg (5,000 unit) tablet (Vitamin D3) 125 mcg PO DAILY 12/24/24
cyanocobalamin (vitamin B-12) 1,000 mcg tablet (Vitamin B-12) 1,000 mcg PO DAILY 12/24/24
furosemide 20 mg tablet (Lasix) 20 mg PO DAILY 12/24/24
lycopene 10 mg capsule 20 mg PO DAILY 12/24/24
prednisolone acetate (PF) 1 % eye drops,suspension 1 drp BOTH EYES PRN PRN Mucous Buildup 12/24/24
zolpidem 12.5 mg tablet,extended release,multiphase (Ambien CR) 12.5 mg PO HSPRN PRN Insomnia 12/24/24
gabapentin 300 mg capsule 300 mg PO HS sleep/pain #10 caps 12/27/24
ondansetron 4 mg disintegrating tablet 4 mg PO Q6H PRN n/v #20 tabs 12/27/24
tramadol 50 mg tablet 50 mg PO Q6H PRN 1 tab moderate pain, 2 if severe #30 tabs 12/27/24
polyethylene glycol 3350 17 gram oral powder packet (Miralax) 17 g PO DAILY 01/12/25
simethicone 80 mg chewable tablet 80 mg PO PRN PRN gas 01/12/25
simethicone 80 mg chewable tablet 80 mg PO QPM 01/12/25
sodium chloride 1,000 mg soluble tablet 500 mg PO BID 01/12/25
acetaminophen 325 mg tablet (Tylenol) 650 mg (2 x 325 mg) PO QID #1 tab 01/19/25
docusate sodium 100 mg capsule (Colace) 100 mg PO BID stool softner #1 cap 01/19/25
lisinopril 20 mg tablet 20 mg PO BID #0 tabs 01/19/25
magnesium hydroxide 400 mg/5 mL oral suspension (Milk of Magnesia) 30 ml PO HS PRN constipation #1 mL 01/19/25
sennosides 8.6 mg tablet (Senokot) 17.2 mg (2 x 8.6 mg) PO BID laxative #2 tabs 01/19/25
apixaban 5 mg tablet (Eliquis) 5 mg PO BID Blood clot prevention/tx/afib 01/29/25
Home Medication Changes
Pending Results: No
[2025-01-31 11:15] VITALS: BP 134/78
--- NOTE | 2025-01-31 11:29 | CM ---
Addendum entered by Stephanie Oh 01/31/25 13:00:
Discharge instructions/summary faxed to [facility] [phone]
Original Note:
Patient seen bedside.
Patient for d/c home today with [facility].
Son here to transport.
IMM completed.
Plan: [facility]
== END 2025-01-31 11:50 | disposition home health service (06) | DRG 643 ==
LOC: 1 ACUTE 00:39
PROVIDERS: Clinical Nurse Specialist Family Health; Physician Assistant; ADMITTING PHYSICIAN Internal Medicine; ATTENDING PHYSICIAN Hospitalist; CONSULT PHYSICIAN Psychiatry & Neurology Neurology; CONSULT PHYSICIAN Specialist; EMERGENCY PHYSICIAN Emergency Medicine; FAMILY PHYSICIAN Internal Medicine Geriatric Medicine
DX: E22.2 Syndrome of inappropriate secretion of antidiuretic hormone (principal); G92.8 Other toxic encephalopathy; I47.20 Ventricular tachycardia, unspecified; I10 Essential (primary) hypertension; I48.0 Paroxysmal atrial fibrillation; E78.00 Pure hypercholesterolemia, unspecified; K21.9 Gastro-esophageal reflux disease without esophagitis; K22.70 Barrett's esophagus without dysplasia; N40.0 Benign prostatic hyperplasia without lower urinary tract symptoms; F41.9 Anxiety disorder, unspecified; G47.00 Insomnia, unspecified; K59.00 Constipation, unspecified; K57.30 Diverticulosis of large intestine without perforation or abscess without bleeding; Z86.73 Personal history of transient ischemic attack (TIA), and cerebral infarction without residual deficits; Z96.641 Presence of right artificial hip joint; Z88.5 Allergy status to narcotic agent; Z79.899 Other long term (current) drug therapy; Z79.01 Long term (current) use of anticoagulants; Z85.46 Personal history of malignant neoplasm of prostate; K52.832 Lymphocytic colitis; K44.9 Diaphragmatic hernia without obstruction or gangrene
CPT/HCPCS: 70450; 70496; 70498; 70551; 74176; 80048; 80053; 80061; 81003; 82607; 82746; 82962; 83036; 83735; 83930; 83935; 84155; 84165; 84300; 84425; 84443; 84484; 85025; 85027; 85610; 85652; 85730; 86140; 93005; 96374; 96375; 97163; 99285; Q9967

== ENCOUNTER 2025-03-21 07:49 | Outpatient (RCR) | payer MEDICARE, BC, SELFPAY | END 2025-03-21 23:59 | disposition home or self-care (01) | LOC: RPT 07:49 | PROVIDERS: ATTENDING PHYSICIAN Orthopaedic Surgery; FAMILY PHYSICIAN Internal Medicine Geriatric Medicine | DX: Z47.1 Aftercare following joint replacement surgery (principal); Z73.6 Limitation of activities due to disability; R26.2 Difficulty in walking, not elsewhere classified; M62.81 Muscle weakness (generalized); M25.551 Pain in right hip; Z96.641 Presence of right artificial hip joint; Z85.46 Personal history of malignant neoplasm of prostate | CPT/HCPCS: 97110; 97140; 97161 ==

== ENCOUNTER 2025-04-01 11:42 | Day surgery (SDC) | payer MEDICARE, BC, SELFPAY ==
--- NOTE | 2025-04-02 01:02 | ITS.CL.CARDI ---
Server Programmer - Cardioversion
Cardioversion
Procedure Report:
Date of Procedure: 04/01/25
Procedure: Cardioversion
Indication: Symptomatic atrial fibrillation
Performing Physician: Sue Salazar DO [facility]
Anticoagulation: Eliquis
Technique: The patient was brought to the holding area. Signed informed consent was obtained. A time out was called and performed. The patient was anesthetized by the anesthesia service. Anticoagulation status was reviewed and appropriate. R2 pads
were placed anteriorly and posteriorly. A 200 J synchronized biphasic shock restored normal sinus rhythm without significant bradycardia. There were no complications. Post procedure EKG: Sinus rhythm with first-degree AV block. Nonspecific ST-T
wave abnormality.
Conclusion: Uncomplicated cardioversion from atrial fibrillation to sinus rhythm.
Recommendation: Routine post cardioversion care. Continue terminologist anticoagulation.
== END 2025-04-01 14:33 | disposition home or self-care (01) ==
LOC: CATH 11:42
PROVIDERS: ATTENDING PHYSICIAN Internal Medicine Cardiovascular Disease; FAMILY PHYSICIAN Internal Medicine Geriatric Medicine; REFERRING PHYSICIAN Internal Medicine Cardiovascular Disease
DX: I48.0 Paroxysmal atrial fibrillation (principal); I10 Essential (primary) hypertension; E78.2 Mixed hyperlipidemia; K21.9 Gastro-esophageal reflux disease without esophagitis; R42 Dizziness and giddiness; Z86.73 Personal history of transient ischemic attack (TIA), and cerebral infarction without residual deficits; Z85.46 Personal history of malignant neoplasm of prostate; Z79.01 Long term (current) use of anticoagulants
CPT/HCPCS: 92960; 93005

== ENCOUNTER → 2025-04-07 12:28 | Outpatient (REF) | payer MEDICARE, BC, SELFPAY | LOC: RAD 12:28 | PROVIDERS: ATTENDING PHYSICIAN Specialist; FAMILY PHYSICIAN Internal Medicine Geriatric Medicine | DX: R10.84 Generalized abdominal pain (principal); C61 Malignant neoplasm of prostate | CPT/HCPCS: 74177; Q9967 ==

== ENCOUNTER 2025-04-08 16:53 | Emergency (ER) | payer MEDICARE, BC, SELFPAY ==
[2025-04-08 16:58] VITALS: BP 150/79
[2025-04-08 17:17] LABS: Hematocrit 38.9 % (39.0-52.0); Hemoglobin 13.2 g/dL (13.0-18.0); Mean Corp Hgb Conc. 33.9 g/dL (33.0-37.0); Mean Corpuscular Volume 86.3 fL (80.0-94.0); Nucleated Red Blood Cells % 0 % (-); Platelet Count 195 10^3/uL (130-400); Red Cell Dist. Width 13.8 % (11.5-14.5)
[2025-04-08 17:31] LABS: ALT (SGPT) 16 U/L (0-50); AST (SGOT) 18 U/L (17-59); Albumin 4.0 g/dl (3.5-5.0); Alkaline Phosphatase 127 U/L (38-126); Blood Urea Nitrogen 15 mg/dl (9-20); Calcium 8.8 mg/dl (8.4-10.2); Carbon Dioxide 21 mmol/L (22-30); Chloride 103 mmol/L (98-107); Glucose 143 mg/dl (70-99); Potassium 4.4 mmol/L (3.5-5.1); Sodium 129 mmol/L (135-145); Total Protein 6.4 g/dl (6.3-8.2); eGFR > 60.00
--- NOTE | 2025-04-08 20:45 | ED.GENMED ---
History of Present Illness
General
Chief Complaint: Abdominal Pain
Source: patient
Time Seen by Provider: 04/08/25 20:18
History of Present Illness
History of Present Illness:
Note:
CHIEF COMPLAINT(S)
Pre-rectal abscess found incidentally on a CT scan.
HISTORY OF PRESENT ILLNESS
The patient is an 85-year-old male with a relevant past medical history of hypertension and atrial fibrillation, who presents following advice from his marine engine machinist, Dr. Tomlin, due to findings from a recent outpatient CT scan. The CT scan,
originally ordered to investigate chronic constipation and loose stools, incidentally showed a small pre-rectal abscess. The patient denies experiencing any related symptoms at this time, including pain in the pelvic or rectal area, and reports no
fever. He was unsure if he is diabetic, receives regular medical care, and has no new complaints.
CHRONIC MEDICAL CONDITIONS SIGNIFICANTLY AFFECTING CARE
- Hypertension
- Atrial Fibrillation
- History of radiation treatment for prostate cancer in July and August
MEDICATIONS
- Blood pressure medication
- Apixaban (Eliquis)
REVIEW OF SYSTEMS
- Gastrointestinal: Reports loose stools and chronic constipation.
- General: No fever reported.
- Pain: Denies pelvic or rectal pain.
PHYSICAL EXAM
General: Alert, cooperative, no acute distress.
Skin: Warm, dry.
Head: Normocephalic, atraumatic.
Neck: Supple, trachea midline.
Ear, Eyes, Nose, and Throat: Oral mucosa moist.
Cardiovascular: Normal peripheral perfusion, no edema.
Respiratory: Respirations are non-labored.
Gastrointestinal: Abdomen soft, non-tender, not distended.
Rectal: No tenderness, mass, or gross blood appreciated on rectal exam.
Back: Normal range of motion, normal alignment.
Musculoskeletal: Normal range of motion, normal strength.
Neurological: Alert and oriented to person, place, time, and situation, no focal neurological deficit observed.
Psychiatric: Cooperative, appropriate mood and affect.
PROBLEM LIST
Acute:
- Tatiana-rectal abscess (incidentally found)
Chronic:
- Hypertension
- h/o Atrial Fibrillation
- History of prostate cancer
PLAN
- Coordinate with colorectal specialists for assessment and further management of the pre-rectal abscess.
- Maintain communication with Dr. Tomlin regarding the findings and plan.
- Monitor the patients symptoms and clinical status, ensuring that any changes are promptly addressed.
DIFFERENTIAL DIAGNOSIS
The Differential Diagnosis includes, in no particular order and is not limited to:
- Ischiorectal abscess
- Perirectal abscess
- Anorectal fistula
- Hemorrhoid-related complications
- Inflammatory bowel disease
- Diverticulitis
- Colorectal carcinoma
- Infectious colitis
- Crohns disease
- Radiation proctitis
CARE-UPDATE
04/08/25 - 20:44
Consultation with gastroenterology and colorectal surgery indicates multidisciplinary input is being integrated into the patients management plan.
Disposition:
SUMMARY OF ENCOUNTER
An 85-year-old male patient was seen in the emergency department after being advised by his marine engine machinist to return due to an incidental finding on a recent outpatient CT scan. The CT scan suggested a potential 18-mm perirectal abscess. The
patient is asymptomatic without abdominal or pelvic pain, fever. A review of the CT scan confirmed an 18-mm rim-enhancing focus along the anterior margin of the distal rectum, consistent with a small perirectal abscess, and mild to moderate
perirectal and presacral stranding. His lab work showed a white blood cell count of 3.8 (normal), hemoglobin of 13.2 (normal), a mild hyponatremia at 129, and a mildly low bicarbonate level of 21.
ASSESSMENT
The patient appears to have a small perirectal abscess without symptoms, as detected by imaging. The condition will be managed with antibiotics and a referral for specialized evaluation.
PLAN
Initiate treatment with antibiotics (amoxicillin/clavulanate) and arrange for the patient to follow up with colorectal surgery for further evaluation and management.
INDEPENDENT REVIEW OF LABS AND INTERPRETATION OF TESTS
My independent review of the CBC indicates normal values except for a white blood cell count of 3.8, which is within normal limits. My independent review of serum chemistries shows a mild hyponatremia at 129 and a mildly low bicarbonate level at 21.
MEDICATION RECONCILIATION
Augmentin (amoxicillin/clavulanate) prescribed for antibiotic therapy.
MEDICAL DECISION MAKING
-Complexity of Data Reviewed: Chronic conditions affecting care include hypertension and atrial fibrillation. Differential diagnosis considered includes ischiorectal abscess, perirectal abscess, anorectal fistula, hemorrhoid-related complications,
inflammatory bowel disease, diverticulitis, colorectal carcinoma, infectious colitis, Crohns disease, and radiation proctitis.
-Data:
Category 1
Non-emergency department records reviewed, including outpatient CT scan results.
Category 3
Discussion of management with gastroenterology and colorectal surgery. Surgical consultation advised and name to be passed for evaluation.
DIAGNOSIS
Perirectal abscess, asymptomatic (K61.3).
Past History
Past History
ED Past Medical History: CVA, GERD, HTN and Hypercholesterolemia
ED Past Surgical History: Orthopedic and Tonsilectomy
Social History
Tobacco: Non-smoker
Alcohol: Occasional
Drug: None
Personal: Single
Living: alone
Phy Exam
Physical Exam
Physical Exam:
.
Course
Orders/Labs/Results
Orders:
Orders
04/08/25 17:10
Type+Screen Urgent
Complete Blood Count/With Diff Urgent
Comprehensive Metabolic Panel Urgent
04/08/25 20:45
Amoxicillin 875 mg/Clav 125 mg [Augmentin 875 mg/125 mg] 1 tablet PO NOW STA
Abnormal Lab Results
04/08/25
17:10
WBC 3.8 L 10^3/uL
(4.8-10.8)
RBC 4.51 L 10^6/uL
(4.70-6.10)
Hct 38.9 L %
(39.0-52.0)
Absolute Lymphs (auto) 0.4 L 10^3/uL
(1.2-3.4)
Lymphocytes % 11.6 L %
(20.5-51.1)
Monocytes % 15.1 H %
(1.7-9.3)
Sodium 129 L mmol/L
(135-145)
Carbon Dioxide 21 L mmol/L
(22-30)
Creatinine 0.6 L mg/dL
(0.7-1.3)
Glucose 143 H mg/dl
(70-99)
Alkaline Phosphatase 127 H U/L
(38-126)
04/08/25 17:10
04/08/25 17:10
Vital Signs
Initial and Last Documented VS:
Initial Vital Signs
Temp Pulse Resp BP Pulse Ox
97.6 F 79 18 150/79 97
04/08/25 16:58 04/08/25 16:58 04/08/25 16:58 04/08/25 16:58 04/08/25 16:58
Last Documented Vital Signs
Temp Pulse Resp BP Pulse Ox
97.6 F 79 18 150/79 97
04/08/25 16:58 04/08/25 16:58 04/08/25 16:58 04/08/25 16:58 04/08/25 20:48
*Pulse Oximetry
SaO2: 97
Oxygen Mode of Delivery: Room air
Patient hypoxic: no
*Critical Care Note
Total Time (30-74mins, 75-104mins- exclusive of procedures): Not Applicable
ED Attending Note
-
Portions of this chart may have been created with voice recognition software.� Occasional wrong word or��sound alike� substitutions may have occurred due to the inherent limitations of voice recognition software.
Discharge Plan
Departure
Patient Disposition: Home (Routine Discharge)
Date of Disposition: 04/08/25
Time of Disposition: 20:46
Patient with high blood pressure during this ER visit?: Yes
Discharge Problem:
Abscess, perirectal
Instructions: BLOOD PRESSURE
Prescriptions:
New
amoxicillin-pot clavulanate 875-125 mg tablet
1 tab PO BID Qty: 14 0RF
No Action
atorvastatin 20 mg Tablet
20 mg PO DAILY
tranylcypromine [Parnate] 10 mg Tablet
50 mg PO DAILY
pantoprazole 40 mg Tablet,Delayed Release (Dr/Ec)
40 mg PO BID
silodosin 8 mg Capsule
8 mg PO DAILY
carvedilol 3.125 mg Tablet
3.125 mg PO BID
calcium carbonate 200 mg calcium (500 mg) Tablet,Chewable
200 mg PO PRN PRN (Reason: Indigestion)
metoclopramide HCl [Reglan] 5 mg Tablet
5 mg PO TIDPRN PRN (Reason: Indigestion)
cyanocobalamin (vitamin B-12) [Vitamin B-12] 1,000 mcg Tablet
1,000 mcg PO DAILY
calcium carbonate [Calcium 600] 600 mg calcium (1,500 mg) Tablet
600 mg PO DAILY
zolpidem [Ambien CR] 12.5 mg Tablet,Ext Release Multiphase
12.5 mg PO HSPRN PRN (Reason: Insomnia)
cholecalciferol (vitamin D3) [Vitamin D3] 125 mcg (5,000 unit) Tablet
125 mcg PO DAILY
prednisolone acetate (PF) 1 % Drops,Suspension
1 drp BOTH EYES PRN PRN (Reason: Mucous Buildup)
Lupron Depot (3 month)
1 dose Q3M
ondansetron 4 mg tablet,disintegrating
4 mg PO Q6H PRN (Reason: n/v) Qty: 20 0RF
Rx Instructions:
take 1/2h b/f pain med if recurrent nausea
allow to dissolve in mouth w/o water
polyethylene glycol 3350 [Miralax] 17 gram Powder In Packet
17 g PO DAILY
simethicone 80 mg Tablet,Chewable
80 mg PO QPM
simethicone 80 mg Tablet,Chewable
80 mg PO PRN PRN (Reason: gas)
sodium chloride 1,000 mg Tablet,Soluble
500 mg PO BID
sennosides [Senokot] 8.6 mg tablet
17.2 mg PO BID Qty: 2 0RF
magnesium hydroxide [Milk of Magnesia] 400 mg/5 mL suspension
30 ml PO HS PRN (Reason: constipation) Qty: 1 0RF
Rx Instructions:
continue taking colace and senokot as advised--if no bowel movement 1 day after surgery -add milk of mag
docusate sodium [Colace] 100 mg capsule
100 mg PO BID Qty: 1 0RF
acetaminophen [Tylenol] 325 mg tablet
650 mg PO QID Qty: 1 0RF
Rx Instructions:
SCHEDULED DOSING
Eliquis 5 mg tablet
5 mg PO BID
Rx Instructions:
2.5mg (1/2 tab) twice daily--resume 5mg twice a day dosing on 01/22/25
atorvastatin [Lipitor] 20 mg Tablet
20 mg PO DAILY
Referrals:
Tha Patel MD [Active, ColoRectal]
Marcos Adams MD [Family Provider, Internal Medicine]
Activity Restrictions/Additional Instructions:
In light of your history, please see colorectal surgery as well as your doctor for follow-up regarding your CT scan. Return immediate for pelvic pain, abdominal pain, fevers or any other concerns. Colorectal surgery was made aware of your need for
follow-up, please be sure to call Friday to arrange an appointment this week.
Interventions
Interventions:
*Risk Screen - Suicide Last Done: 04/08/25 16:59
*General Assessment Last Done: 04/08/25 20:30
*Neglect/Abuse Screening Last Done: 04/08/25 16:59
*ED- Fall Risk Assessment Last Done: 04/08/25 20:30
*ED COVID-19 Vaccine History Last Done: 04/08/25 20:30
*Nursing Disposition Last Done: 04/08/25 21:23
ZJ-Ldjkhl-Muznuzlvjj Assessment Last Done: 04/08/25 20:30
Discharge Date and Time
Discharge Date/Time: 04/08/25 21:23
Print Language: AZERI
[2025-04-08] MEDS: AUGMENTIN 875 MG/125 MG 1 TABLET PO (20:53)
== END 2025-04-08 21:23 | disposition home or self-care (01) ==
LOC: EMR 16:53
PROVIDERS: Emergency Medicine; EMERGENCY PHYSICIAN Emergency Medicine; FAMILY PHYSICIAN Internal Medicine Geriatric Medicine
DX: K61.1 Rectal abscess (principal); I10 Essential (primary) hypertension; E78.00 Pure hypercholesterolemia, unspecified; I48.91 Unspecified atrial fibrillation; C61 Malignant neoplasm of prostate; Z92.3 Personal history of irradiation; E87.1 Hypo-osmolality and hyponatremia; Z86.73 Personal history of transient ischemic attack (TIA), and cerebral infarction without residual deficits
CPT/HCPCS: 99283; 80053; 85025; 86850; 86900; 86901

== ENCOUNTER → 2025-04-18 11:19 | Outpatient (REF) | payer MEDICARE, BC, SELFPAY | LOC: HWRCS 11:19 | PROVIDERS: ATTENDING PHYSICIAN Internal Medicine Cardiovascular Disease; FAMILY PHYSICIAN Internal Medicine Geriatric Medicine | DX: I48.0 Paroxysmal atrial fibrillation (principal); G45.9 Transient cerebral ischemic attack, unspecified; I51.7 Cardiomegaly | CPT/HCPCS: 93306 ==

== ENCOUNTER 2025-04-21 06:51 | Outpatient (RCR) | payer MEDICARE, BC, SELFPAY | END 2025-04-21 23:59 | disposition home or self-care (01) | LOC: RPT 06:51 | PROVIDERS: ATTENDING PHYSICIAN Orthopaedic Surgery; FAMILY PHYSICIAN Internal Medicine Geriatric Medicine | DX: Z47.1 Aftercare following joint replacement surgery (principal); Z73.6 Limitation of activities due to disability; R26.2 Difficulty in walking, not elsewhere classified; M62.81 Muscle weakness (generalized); M25.551 Pain in right hip; Z96.641 Presence of right artificial hip joint; Z85.46 Personal history of malignant neoplasm of prostate | CPT/HCPCS: 97110; 97112 ==

== ENCOUNTER 2025-05-19 07:08 | Outpatient (RCR) | payer MEDICARE, BC, SELFPAY | END 2025-05-19 23:59 | disposition home or self-care (01) | LOC: RPT 07:08 | PROVIDERS: ATTENDING PHYSICIAN Orthopaedic Surgery; FAMILY PHYSICIAN Internal Medicine Geriatric Medicine | DX: Z47.1 Aftercare following joint replacement surgery (principal); Z73.6 Limitation of activities due to disability; R26.2 Difficulty in walking, not elsewhere classified; M62.81 Muscle weakness (generalized); M25.551 Pain in right hip; Z96.641 Presence of right artificial hip joint; M19.011 Primary osteoarthritis, right shoulder; Z85.46 Personal history of malignant neoplasm of prostate; M25.511 Pain in right shoulder | CPT/HCPCS: 97110; 97112; 97140; 97530 ==

== ENCOUNTER 2025-05-24 06:18 | Day surgery (SDC) | payer MEDICARE, BC, SELFPAY | END 2025-05-24 12:05 | disposition home or self-care (01) | LOC: GI 06:18 | PROVIDERS: ATTENDING PHYSICIAN Specialist | DX: K22.710 Barrett's esophagus with low grade dysplasia (principal); K44.9 Diaphragmatic hernia without obstruction or gangrene; K20.90 Esophagitis, unspecified without bleeding | CPT/HCPCS: 43239; 88305 ==

== ENCOUNTER 2025-05-25 10:53 | Day surgery (SDC) | payer MEDICARE, BC, SELFPAY ==
[2025-05-25] VITALS (11 sets, daily range): BP systolic 139–165; BP diastolic 49–74
--- NOTE | 2025-05-25 13:59 | ITS.CL.IMPLP ---
Crate Maker - Implant Loop
Implant Loop
Procedure Report:
Primary Physician: Dr Marcos Adams
Primary Preventative Maintenance Technician: Dr Mitchel Beth
Procedure Date: 05/25/2025
Procedure:
1. Removal of Implanted Loop Recorder
2. Implant of Implantable Loop Recorder
History/Indication:
1. See office H&P for complete history.
2. Patient is a pleasant 85-year-old male with a past medical history significant for paroxysmal atrial fibrillation, TIA, cardiomegaly, hyperlipidemia, hypertension, Hauser's esophagus, GERD, sleep apnea, aortic valve sclerosis, depression, PVCs,
NSVT, A. tach, hyponatremia, prostate cancer, who is ILR has reached RAY/EOS. Patient electing for ILR reimplant for longitudinal surveillance for atrial fibrillation/arrhythmias.
Methods:
After informed consent was obtained, the patient was brought to the EP laboratory. Continuous ECG, blood pressure, and pulse oximetry were initiated. Conscious sedation was used.
The left chest was prepared and draped in a sterile fashion. A time-out was called. Local anesthesia was injected in the subcutaneous tissue overlying the ILR. An incision was made on old implanted device. Chronic scar was medial to the device.
The subcutaneous tissue was dissected the level of the chronic capsule. The capsule was opened and the ILR was removed.
The pocket was flushed with antibiotic solution and hemostasis was assured. The ILR was injected under the skin. Topical skin adhesive was applied. Site was dressed in standard fashion. Following the procedure, the patient was taken to the
recovery area in stable condition. No complications were noted.
Implanted Device: Medtronic; Model# LINQII; Serial# [id number]
Explanted Device: Getonic Model: [id number], Serial#[id number]
Conclusions:
1. Successful removal of ILR
2. Successful implant of ILR
Recommendations:
1. Discharge to home
2. Follow-up will be arranged in the office 7-10 days post-discharge
Miller C. Wiener, DO, FACC, FHRS
Clinical Card[facility] [employer]
cc: Dr Marcos Adams; Dr Mitchel Beth
== END 2025-05-25 15:45 | disposition home or self-care (01) ==
LOC: CATH 10:53
PROVIDERS: ATTENDING PHYSICIAN Internal Medicine Cardiovascular Disease; FAMILY PHYSICIAN Internal Medicine Geriatric Medicine; OTHER PHYSICIAN Internal Medicine Cardiovascular Disease
DX: Z09 Encounter for follow-up examination after completed treatment for conditions other than malignant neoplasm (principal); I48.0 Paroxysmal atrial fibrillation; E78.5 Hyperlipidemia, unspecified; G47.30 Sleep apnea, unspecified; I10 Essential (primary) hypertension; K22.70 Barrett's esophagus without dysplasia; K21.00 Gastro-esophageal reflux disease with esophagitis, without bleeding; I35.8 Other nonrheumatic aortic valve disorders; Z86.73 Personal history of transient ischemic attack (TIA), and cerebral infarction without residual deficits; Z87.19 Personal history of other diseases of the digestive system; I47.29 Other ventricular tachycardia
CPT/HCPCS: 33285; 33286; C1764

== ENCOUNTER 2025-06-21 06:20 | Outpatient (RCR) | payer MEDICARE, BC, SELFPAY | END 2025-06-21 23:59 | disposition home or self-care (01) | LOC: RPT 06:20 | PROVIDERS: ATTENDING PHYSICIAN Orthopaedic Surgery; FAMILY PHYSICIAN Internal Medicine Geriatric Medicine | DX: Z47.1 Aftercare following joint replacement surgery (principal); Z73.6 Limitation of activities due to disability; R26.2 Difficulty in walking, not elsewhere classified; M62.81 Muscle weakness (generalized); M25.551 Pain in right hip; M19.011 Primary osteoarthritis, right shoulder; M25.511 Pain in right shoulder; Z96.641 Presence of right artificial hip joint; Z85.46 Personal history of malignant neoplasm of prostate | CPT/HCPCS: 97110; 97112; 97140; 97530 ==

== ENCOUNTER 2025-07-18 07:31 | Outpatient (RCR) | payer MEDICARE, BC, SELFPAY | END 2025-07-18 23:59 | disposition home or self-care (01) | LOC: RPT 07:31 | PROVIDERS: ATTENDING PHYSICIAN Orthopaedic Surgery; FAMILY PHYSICIAN Internal Medicine Geriatric Medicine | DX: Z47.1 Aftercare following joint replacement surgery (principal); Z73.6 Limitation of activities due to disability; R26.2 Difficulty in walking, not elsewhere classified; M62.81 Muscle weakness (generalized); M25.551 Pain in right hip; M19.011 Primary osteoarthritis, right shoulder; M25.511 Pain in right shoulder; Z96.641 Presence of right artificial hip joint; Z85.46 Personal history of malignant neoplasm of prostate | CPT/HCPCS: 97110; 97530 ==

== ENCOUNTER 2025-08-17 06:28 | Outpatient (RCR) | payer MEDICARE, BC, SELFPAY | END 2025-08-17 23:59 | disposition home or self-care (01) | LOC: RPT 06:28 | PROVIDERS: ATTENDING PHYSICIAN Orthopaedic Surgery; FAMILY PHYSICIAN Internal Medicine Geriatric Medicine | DX: Z47.1 Aftercare following joint replacement surgery (principal); Z73.6 Limitation of activities due to disability; R26.2 Difficulty in walking, not elsewhere classified; M62.81 Muscle weakness (generalized); M25.551 Pain in right hip; M19.011 Primary osteoarthritis, right shoulder; M25.511 Pain in right shoulder; Z96.641 Presence of right artificial hip joint; Z85.46 Personal history of malignant neoplasm of prostate | CPT/HCPCS: 97110; 97112; 97530 ==

== ENCOUNTER 2025-08-19 06:23 | Outpatient (RCR) | payer MEDICARE, BC, SELFPAY | END 2025-08-19 23:59 | disposition home or self-care (01) | LOC: RPT 06:23 | PROVIDERS: ATTENDING PHYSICIAN Family Medicine Geriatric Medicine; FAMILY PHYSICIAN Internal Medicine Geriatric Medicine | DX: M62.89 Other specified disorders of muscle (principal); Z73.6 Limitation of activities due to disability; M62.81 Muscle weakness (generalized); Z85.46 Personal history of malignant neoplasm of prostate; Z92.3 Personal history of irradiation; Z96.641 Presence of right artificial hip joint | CPT/HCPCS: 97161; 97530 ==

== ENCOUNTER → 2025-08-23 13:24 | Outpatient (REF) | payer MEDICARE, BC, SELFPAY | LOC: HWRAD 13:24 | PROVIDERS: ATTENDING PHYSICIAN Nurse Practitioner Family; FAMILY PHYSICIAN Internal Medicine Geriatric Medicine | DX: J32.9 Chronic sinusitis, unspecified (principal) | CPT/HCPCS: 70486 ==

== ENCOUNTER 2025-09-14 06:49 | Outpatient (RCR) | payer MEDICARE, BC, SELFPAY | END 2025-09-14 23:59 | disposition home or self-care (01) | LOC: RPT 06:49 | PROVIDERS: ATTENDING PHYSICIAN Family Medicine Geriatric Medicine; FAMILY PHYSICIAN Internal Medicine Geriatric Medicine | DX: M62.89 Other specified disorders of muscle (principal); Z73.6 Limitation of activities due to disability; R26.89 Other abnormalities of gait and mobility; M62.81 Muscle weakness (generalized); Z85.46 Personal history of malignant neoplasm of prostate; Z92.3 Personal history of irradiation | CPT/HCPCS: 97110; 97112; 97140; 97530 ==

== ENCOUNTER 2025-09-21 07:17 | Outpatient (RCR) | payer MEDICARE, BC, SELFPAY | END 2025-09-21 23:59 | disposition home or self-care (01) | LOC: RPT 07:17 | PROVIDERS: ATTENDING PHYSICIAN Orthopaedic Surgery; FAMILY PHYSICIAN Internal Medicine Geriatric Medicine | DX: Z47.1 Aftercare following joint replacement surgery (principal); M62.89 Other specified disorders of muscle (principal); Z73.6 Limitation of activities due to disability; M25.511 Pain in right shoulder; R26.89 Other abnormalities of gait and mobility; M19.011 Primary osteoarthritis, right shoulder; M62.81 Muscle weakness (generalized); R39.11 Hesitancy of micturition; R15.2 Fecal urgency; Z85.46 Personal history of malignant neoplasm of prostate; Z92.3 Personal history of irradiation; Z96.641 Presence of right artificial hip joint | CPT/HCPCS: 97110; 97530 ==